=== PATIENT | male | born 2000 | race Caucasian/White ===

== ENCOUNTER 2020-07-16 09:37 | Emergency (ER) | payer MEDICAID, SELFPAY ==
[2020-07-16 09:56] VITALS: BP 170/87; PULSE 92; RESP 16; TEMP 37; O2SAT 97; BMI 40.1
--- NOTE | 2020-07-16 10:41 | ED.GENADULT ---
HPI - General Adult General Chief complaint: General Medical Stated complaint: sore throat Time Seen by Provider: 07/16/20 10:37 Source: patient Mode of arrival: ambulatory History of Present Illness HPI narrative: 19-year-old male with a past medical history of seizures presenting to the ED complaining of sore throat x3 days. Reports worse on left side with pain/difficulty swallowing. Denies fever, chills, difficulty breathing, cough, chest pain, ear pain Onset (ago): day(s) Related Data Previous Rx's Medication Instructions Recorded acetaminophen [Tylenol Extra 500 mg PO Q6H PRN #20 tab 07/16/20 Strength] amoxicillin-pot clavulanate 1 tab PO Q12H 7 Days #14 tab 07/16/20 [Augmentin] ibuprofen 600 mg PO Q8H PRN #20 tab 07/16/20 Allergies Allergy/AdvReac Type Severity Reaction Status Date / Time No Known Allergies Allergy Verified 07/16/20 09:59 [No Known Allergies*] Review of Systems Review of Systems: Constitutional: No Fever, No Chills ENT/Mouth: No Ear Pain, No Nasal Congestion, No Sinus Pain, No Hoarseness, + sore throat, No Rhinorrhea, + Swallowing Difficulty Cardiovascular: No Chest Pain, No SOB Respiratory: No Cough, No Sputum, No Wheezing Gastrointestinal: No Nausea, No Vomiting, No Diarrhea, No Abdominal pain Musculoskeletal: No joint pain, No Myalgias Skin: No Skin Lesions, No rash Yes all other systems are reviewed and are negative PMFSH Past Medical History Attestation statement: The following information was validated with the patient. Medical History (Updated 07/16/20 @ 10:48 by LASHAE Coates) Seizure Social History Social History Advance Directives: No Advance Directives Information Provided: No Physical Exam Vital Signs: Vital Signs: Last Vital Signs Temp 98.6 F 07/16/20 09:56 Pulse 92 07/16/20 09:56 Resp 16 07/16/20 09:56 BP 170/87 H 07/16/20 09:56 Pulse Ox 97 07/16/20 09:56 Body Mass Index 40.1 Const: General: cooperative, healthy appearing and no acute distress Orientation/consciousness: patient oriented x3 Limitations: no limitations HENMT: Other: No evidence of COUNTY COURT JUDGE Head: Yes normal to inspection Ears: hearing grossly normal bilaterally and TM's normal bilaterally General nose exam: Normal external nose present Face and sinus: Yes normal facial exam Mouth: Normal oral and palatal mucosa present Throat: Yes uvula midline, Yes abnormal tonsil (Bilateral tonsillar erythema, swelling, and exudates > left), No peritonsillar mass, No uvula laterally displaced and No uvular edema Eyes: General: appearance normal, both eyes and all related structures EOM: EOMs intact bilaterally Neck: Other: + submandibular lymphadenopathy Neck: Yes normal visual inspection and Yes no meningeal signs Resp: Effort & Inspection: normal respiratory effort, no grunting, not labored and no stridor Cardio: Rate: regular rate Skin: Rashes: no rashes Wounds: no wounds Neuro: General: patient oriented x3 and no meningeal signs Gait exam (Neuro): Normal gait present Extrem: General: Yes normal to inspection Medical Decision Making MDM Narrative Medical decision making narrative: On exam VSS, NAD/well-appearing, exam consistent with strep pharyngitis, no evidence of [employer] COURT JUDGE, no respiratory distress, talking in complete sentences. Plan: PO Decadron, 1st dose of Augmentin, rapid strep, strict return precautions discussed, patient verbalized understanding Discharge Plan Discharge Clinical Impression: Strep pharyngitis Patient Disposition: Home, Self-Care Instructions: Strep Throat (ED) Additional Instructions: You likely have strep pharyngitis. Augmentin is an antibiotic, take as prescribed Your given a doses steroid today in the ED which will help with swelling, this takes 24 hours to take full effect Take Tylenol/ Motrin for pain and swelling He should be re-evaluated in a couple days If her symptoms persist or worsen, swelling persists, you are unable to swallow/have difficulty swelling, or any difficulty breathing return to the ED immediately Prescriptions: New acetaminophen [Tylenol Extra Strength] 500 mg tablet 500 mg PO Q6H PRN (Reason: pain or fever) Qty: 20 RF: 0 amoxicillin-pot clavulanate [Augmentin] 875-125 mg tablet 1 tab PO Q12H 7 Days Qty: 14 RF: 0 ibuprofen 600 mg tablet 600 mg PO Q8H PRN (Reason: fever or pain) Qty: 20 RF: 0 Referrals: [facility] [Primary Care Provider] - 2 days
[2020-07-16] MEDS: dexAMETHasone 2 MG TABLET 10 MG PO (10:58)
[2020-07-16] MEDS: Amoxicillin/Potassium Clav 875 MG TABLET PO (10:58)
[2020-07-16 11:16] LABS: Strep A Nucleic Acid Negative (Negative)
== END 2020-07-16 11:11 | disposition home or self-care (01) ==
PROVIDERS: Physician Assistant; Emergency Provider Emergency Medicine Emergency Medical Services
DX: J02.0 Streptococcal pharyngitis (principal); Z79.899 Other long term (current) drug therapy
CPT/HCPCS: 36415; 87651; 99283; J8540

== ENCOUNTER 2020-07-17 16:29 | Emergency (ER) | payer MEDICAID, SELFPAY ==
--- NOTE | ~2020-07-17 | CT_ITS ---
EXAMINATION: CT SOFT TISSUE NECK WITH CONTRAST CLINICAL INFORMATION: Asymmetric throat swelling, evaluate for abscess. COMPARISON: CT scan of the cervical spine 04/08/2019. TECHNIQUE: Following the intravenous administration of 60 mL of Omnipaque 350 intravenous contrast, helical imaging was performed in the axial plane with generation of coronal and sagittal reformatted images. This CT examination was performed using dose optimization techniques as appropriate, variously including the following: *Automated exposure control *Adjustment of mA and/or kV according to patient size (this includes techniques or standardized protocols for targeted exams where dose is matched to indication/reason for exam; i.e. extremities or head) *Use of iterative reconstruction technique DLP: 966 mGy-cm FINDINGS: There is fullness in the left floor of mouth, which has some central low attenuation. No discrete fluid collection is demonstrated at present. There is moderate prominence of the lingual tonsils bilaterally, more extensive on the left. There is mass effect on the oropharyngeal airway which is narrowed on the left. There are moderate to prominent lymph nodes in the neck bilaterally, measuring up to 2.5 cm in the left level IIA region, and up to 1.9 cm on the right. The parotid glands are homogeneous in attenuation. The submandibular glands are normal. The laryngeal structures are normal. The parapharyngeal fat is preserved. The cervical vascular structures opacify normally. No extra mucosal soft tissue mass or fluid collection is seen. No retropharyngeal fluid collection is seen. The thyroid gland is normal. The superior mediastinum is unremarkable. The lung apices are clear. The mastoid air cells are well-aerated. There is mild mucoperiosteal thickening in the left maxillary sinus inferiorly. The temporomandibular joints are normal. There are periapical and periodontal lucencies around the roots of a markedly carious left maxillary 1st molar tooth. Similar periapical changes are noted around the roots of the right maxillary 2nd molar tooth. There are also periapical lucencies and periodontal disease around the buccal aspect of the root filled left mandibular 1st molar tooth. The left maxillary 3rd molar tooth is unerupted. There are no acute osseous findings. There are no acute osseous findings. The visualized intracranial. The orbits are unremarkable. CT/CT soft tissue neck w con IMPRESSION: 1. There is fullness of the left floor of mouth with some central low-attenuation, which may be consistent with an evolving abscess. No discrete fluid collection is demonstrated at present. 2. Moderately prominent lymph nodes are noted bilaterally as described above. 3. Periapical and periodontal disease is noted around multiple teeth in the mandible and maxilla as described above.
[2020-07-17 16:40] VITALS: BP 147/104; PULSE 55; RESP 18; TEMP 36.4; O2SAT 99; BMI 40.1
--- NOTE | 2020-07-17 17:29 | ED_ITS ---
HPI - General Adult General Chief complaint: General Medical <LASHAE Marcano - Last Filed: 07/18/20 12:00> Stated complaint: ?Strep throat <LASHAE Marcano - Last Filed: 07/18/20 12:00> Time Seen by Provider: 07/17/20 17:02 <LASHAE Marcano Last Filed: 07/18/20 12:00> Source: patient <LASHAE Marcano Last Filed: 07/18/20 12:00> Mode of arrival: ambulatory <LASHAE Marcano Last Filed: 07/18/20 12:00> Limitations: no limitations <LASHAE Marcano Last Filed: 07/18/20 12:00> History of Present Illness HPI narrative: 19 y/o male with history of epilepsy presents to the ER with worsening sore throat for the last 4 days. He was seen here yesterday. He tested negative for Strep and was discharged with Augmentin, Motrin and Tylenol. He reports this morning his pain is significantly worse on the left side of his throat and neck. He was only able to eat a small amount this morning and it was very painful. He has been spitting out his own saliva because it hurts so bad to swallow. He denies difficulty breathing, fever, chills, vomiting. He he able to take his antibiotic and Motrin this morning. <LASHAE Marcano - Last Filed: 07/18/20 12:00> MD complaint: severe sore throat. <LASHAE Marcano Last Filed: 07/18/20 12:00> Onset (ago): day(s) (4) <LASHAE Marcano - Last Filed: 07/18/20 12:00> Location: mouth and neck <LASHAE Marcano Last Filed: 07/18/20 12:00> Radiation: distal <LASHAE Marcano Last Filed: 07/18/20 12:00> Severity: severe <LASHAE Marcano Last Filed: 07/18/20 12:00> Severity scale (1-10): 8 <LASHAE Marcano Last Filed: 07/18/20 12:00> Quality: stabbing and constant <LASHAE Marcano Last Filed: 07/18/20 12:00> Pain Consistency: constant <LASHAE Marcano Last Filed: 07/18/20 12:00> Relieving factors: none <LASHAE Marcano Last Filed: 07/18/20 12:00> Exacerbating factors: eating <LASHAE Marcano Last Filed: 07/18/20 12:00> Associated symptoms: headaches and loss of appetite <LASHAE Marcano Last Filed: 07/18/20 12:00> Treatments prior to arrival: NSAID <LASHAE Marcano Last Filed: 07/18/20 12:00> Related Data Home medications: Previous Rx's Medication Instructions Recorded acetaminophen [Tylenol Extra 500 mg PO Q6H PRN #20 tab 07/16/20 Strength] amoxicillin-pot clavulanate 1 tab PO Q12H 7 Days #14 tab 07/16/20 [Augmentin] ibuprofen 600 mg PO Q8H PRN #20 tab 07/16/20 <LASHAE Marcano Last Filed: 07/18/20 12:00> Allergies/adverse reactions: Allergies Allergy/AdvReac Type Severity Reaction Status Date / Time No Known Allergies Allergy Verified 07/16/20 09:59 [No Known Allergies*] <LASHAE Marcano Last Filed: 07/18/20 12:00> Review of Systems Review of Systems: Constitutional: No Fever, No Chills ENT/Mouth: + sore throat, No Rhinorrhea, + Swallowing Difficulty Eyes: No Eye Pain, No Swelling, No Redness Cardiovascular: No Chest Pain, No SOB Respiratory: No Cough, No Sputum, No Wheezing, No dyspnea Gastrointestinal: No Nausea, No Vomiting, No Diarrhea, No abdominal Pain Musculoskeletal: No joint pain, No Myalgias Skin: No Skin Lesions, No rash Neuro: No Weakness, No Numbness, No Dizziness, + Headache Heme/Lymph: No Bruising, + Lymphadenopathy <LASHAE Marcano Last Filed: 07/18/20 12:00> PMFSH Past Medical History Attestation statement: The following information was validated with the patient. <LASHAE Marcano Last Filed: 07/18/20 12:00> Medical History: Medical History Seizure <LASHAE Marcano - Last Filed: 07/18/20 12:00> Social History Social History: Social History Alcohol intake: never Smoking Status: Never smoker Use of substances other than those prescribed or required for medical reasons: No Advance Directives: No Advance Directives Information Provided: No <LASHAE Marcano - Last Filed: 07/18/20 12:00> Physical Exam Vital Signs: Vital Signs: Last Vital Signs Temp 97.8 F 07/17/20 22:56 Pulse 70 07/17/20 22:56 Resp 18 07/17/20 22:56 BP 153/93 H 07/17/20 22:56 Pulse Ox 96 07/17/20 22:56 Body Mass Index 40.1 Appearance: Alert. Oriented X3. No acute distress. Eyes: Pupils equal, round and reactive to light. ENT: Pharynx with significant erythema and edema of the left tonsil. voice is normal and he is handling his secretions appropriately. Neck: Normal inspection. Neck supple. CVS: Normal heart rate and rhythm. Pulses normal. Respiratory: No respiratory distress. Breath sounds normal. Abdomen: Soft and nontender. +BS x4 Skin: Skin warm and dry. Normal skin color. Normal skin turgor. No rashes. Extremities: No lower extremity edema. Neuro: Oriented X 3. No motor deficit. No sensory deficit. <LASHAE Marcano - Last Filed: 07/18/20 12:00> Vital Signs: Last Vital Signs Temp 97.8 F 07/17/20 22:56 Pulse 70 07/17/20 22:56 Resp 18 07/17/20 22:56 BP 153/93 H 07/17/20 22:56 Pulse Ox 96 07/17/20 22:56 Body Mass Index 40.1 <Gala Wolf NP - Last Filed: 07/18/20 01:20> Course Course Course Narrative: 19 y/o male presenting with severe sore throat. Exam is concerning for peritonsillar abscess with unilateral swelling in the left side. Will need to get labs and CT scan to differentiate peritonsillar vs retropharyngeal abscess. Patient reports his voice sounds muffled to him and he is having difficulty swallowing his own saliva. IV clindamycin, IV decadron and Toradol ordered. Dispo pending results and improvement. <LASHAE Marcano - Last Filed: 07/18/20 12:00> Sign-out from [place] at 6:00 p.m. 7:[address] scan still pending. 10:[address] scan shows some fullness in the left floor of mouth, which has some central low attenuation. No discrete fluid collection is demonstrated at present. There is moderate prominence of the lingual tonsils bilaterally, more extensive on the left. There is mass effect on the oropharyngeal airway which is narrowed on the left. This was discussed with Dr. Montenegro, plan is to call out to [facility] for ENT. 11: 18 p.m. called to [facility], discussion with ENT, [facility] is close to stable transfers at this time. Call out to [facility]. [id number] call out to [facility]. [address] Rubio at [facility]. Patient does understand reason for transfer to [facility]. Patient verbalized understanding of and agrees with plan. <Gala Wolf NP - Last Filed: 07/18/20 01:20> Medical Decision Making Differential Diagnosis Differential Diagnosis: Peritonsillar abscess, Porter's, strep pharyngitis <Gala Wolf NP - Last Filed: 07/18/20 01:20> Lab Data Lab results reviewed: Yes I reviewed the patient's lab results. <Gala Wolf NP - Last Filed: 07/18/20 01:20> Result diagrams: : 07/17/20 18:01 07/17/20 18:01 <LASHAE Marcano - Last Filed: 07/18/20 12:00> Labs: Lab Results 07/17/20 07/17/20 07/17/20 Range/Units 18:01 18:01 18:01 WBC 9.5 (4.8-10.8) X10*3/uL RBC 5.02 (4.60-5.80) X10*6/uL Hgb 15.1 (14.0-18.0) g/dl Hct 46.0 (42-52) % MCV 91.6 (80-98) fL MCH 30.1 (27.0-33.0) pg MCHC 32.8 (31.0-36.0) g/dl RDW 11.9 (11.0-16.0) % Plt Count 243 (160-400) X10*3/uL MPV 11.5 (9.4-12.4) fL Immature Gran % (Auto) 0.5 H (0.0-0.4) % Neut % (Auto) 64.8 (45-73) % Lymph % (Auto) 21.8 (20-40) % Bill[place] % (Auto) 12.1 H (2-11) % Eos % (Auto) 0.6 (0-4) % Baso % (Auto) 0.2 (0-2) % Lymph # (Auto) 2.1 (1.2-4.9) X10*3/uL Bill[place] # (Auto) 1.2 (0.1-1.2) X10*3/uL Eos # (Auto) 0.1 (0.0-0.4) X10*3/uL Baso # (Auto) 0.0 (0.0-0.2) X10*3/uL Abs Immat Gran (auto) 0.05 H (0.00-0.03) X10*3/uL Absolute Neuts (auto) 6.2 (2.0-8.3) X10*3/uL Absolute Nucleated RBC 0.000 (0.0-0.012) X10*3/uL Nucleated RBC % (auto) 0.0 (0.0-0.2) /100WBC Sodium 143 (135-145) mmol/L Potassium 4.0 (3.3-5.1) mmol/L Chloride 108 (96-108) mmol/L Carbon Dioxide 24 (22-29) mmol/L Anion Gap 15 (12-20) BUN 18 H (9-16) mg/dL Creatinine 1.10 (0.5-1.4) mg/dL Estim Creat Clear Calc 142.1 Estimated GFR > 60 Random Glucose 95 (60-115) mg/dL Lactic Acid 0.8 (0.5-2.0) mmol/L Calcium 9.9 (8.4-10.2) mg/dL COVID-19 (CASPER) (Negative) COVID-19 Clin Com 07/17/20 Range/Units 23:03 WBC (4.8-10.8) X10*3/uL RBC (4.60-5.80) X10*6/uL Hgb (14.0-18.0) g/dl Hct (42-52) % MCV (80-98) fL MCH (27.0-33.0) pg MCHC (31.0-36.0) g/dl RDW (11.0-16.0) % Plt Count (160-400) X10*3/uL MPV (9.4-12.4) fL Immature Gran % (Auto) (0.0-0.4) % Neut % (Auto) (45-73) % Lymph % (Auto) (20-40) % Billings % (Auto) (2-11) % Eos % (Auto) (0-4) % Baso % (Auto) (0-2) % Lymph # (Auto) (1.2-4.9) X10*3/uL Billings # (Auto) (0.1-1.2) X10*3/uL Eos # (Auto) (0.0-0.4) X10*3/uL Baso # (Auto) (0.0-0.2) X10*3/uL Abs Immat Gran (auto) (0.00-0.03) X10*3/uL Absolute Neuts (auto) (2.0-8.3) X10*3/uL Absolute Nucleated RBC (0.0-0.012) X10*3/uL Nucleated RBC % (auto) (0.0-0.2) /100WBC Sodium (135-145) mmol/L Potassium (3.3-5.1) mmol/L Chloride (96-108) mmol/L Carbon Dioxide (22-29) mmol/L Anion Gap (12-20) BUN (9-16) mg/dL Creatinine (0.5-1.4) mg/dL Estim Creat Clear Calc Estimated GFR Random Glucose (60-115) mg/dL Lactic Acid (0.5-2.0) mmol/L Calcium (8.4-10.2) mg/dL COVID-19 (CASPER) Negative (Negative) COVID-19 Clin Com See Note <LASHAE Marcano - Last Filed: 07/18/20 12:00> Lab Results 07/17/20 07/17/20 07/17/20 Range/Units 18:01 18:01 18:01 WBC 9.5 (4.8-10.8) X10*3/uL RBC 5.02 (4.60-5.80) X10*6/uL Hgb 15.1 (14.0-18.0) g/dl Hct 46.0 (42-52) % MCV 91.6 (80-98) fL MCH 30.1 (27.0-33.0) pg MCHC 32.8 (31.0-36.0) g/dl RDW 11.9 (11.0-16.0) % Plt Count 243 (160-400) X10*3/uL MPV 11.5 (9.4-12.4) fL Immature Gran % (Auto) 0.5 H (0.0-0.4) % Neut % (Auto) 64.8 (45-73) % Lymph % (Auto) 21.8 (20-40) % Bill[place] % (Auto) 12.1 H (2-11) % Eos % (Auto) 0.6 (0-4) % Baso % (Auto) 0.2 (0-2) % Lymph # (Auto) 2.1 (1.2-4.9) X10*3/uL Bill[place] # (Auto) 1.2 (0.1-1.2) X10*3/uL Eos # (Auto) 0.1 (0.0-0.4) X10*3/uL Baso # (Auto) 0.0 (0.0-0.2) X10*3/uL Abs Immat Gran (auto) 0.05 H (0.00-0.03) X10*3/uL Absolute Neuts (auto) 6.2 (2.0-8.3) X10*3/uL Absolute Nucleated RBC 0.000 (0.0-0.012) X10*3/uL Nucleated RBC % (auto) 0.0 (0.0-0.2) /100WBC Sodium 143 (135-145) mmol/L Potassium 4.0 (3.3-5.1) mmol/L Chloride 108 (96-108) mmol/L Carbon Dioxide 24 (22-29) mmol/L Anion Gap 15 (12-20) BUN 18 H (9-16) mg/dL Creatinine 1.10 (0.5-1.4) mg/dL Estim Creat Clear Calc 142.1 Estimated GFR > 60 Random Glucose 95 (60-115) mg/dL Lactic Acid 0.8 (0.5-2.0) mmol/L Calcium 9.9 (8.4-10.2) mg/dL COVID-19 (CASPER) (Negative) COVID-19 Clin Com 07/17/20 Range/Units 23:03 WBC (4.8-10.8) X10*3/uL RBC (4.60-5.80) X10*6/uL Hgb (14.0-18.0) g/dl Hct (42-52) % MCV (80-98) fL MCH (27.0-33.0) pg MCHC (31.0-36.0) g/dl RDW (11.0-16.0) % Plt Count (160-400) X10*3/uL MPV (9.4-12.4) fL Immature Gran % (Auto) (0.0-0.4) % Neut % (Auto) (45-73) % Lymph % (Auto) (20-40) % Billings % (Auto) (2-11) % Eos % (Auto) (0-4) % Baso % (Auto) (0-2) % Lymph # (Auto) (1.2-4.9) X10*3/uL Billings # (Auto) (0.1-1.2) X10*3/uL Eos # (Auto) (0.0-0.4) X10*3/uL Baso # (Auto) (0.0-0.2) X10*3/uL Abs Immat Gran (auto) (0.00-0.03) X10*3/uL Absolute Neuts (auto) (2.0-8.3) X10*3/uL Absolute Nucleated RBC (0.0-0.012) X10*3/uL Nucleated RBC % (auto) (0.0-0.2) /100WBC Sodium (135-145) mmol/L Potassium (3.3-5.1) mmol/L Chloride (96-108) mmol/L Carbon Dioxide (22-29) mmol/L Anion Gap (12-20) BUN (9-16) mg/dL Creatinine (0.5-1.4) mg/dL Estim Creat Clear Calc Estimated GFR Random Glucose (60-115) mg/dL Lactic Acid (0.5-2.0) mmol/L Calcium (8.4-10.2) mg/dL COVID-19 (CASPER) Negative (Negative) COVID-19 Clin Com See Note <Gala Wolf NP - Last Filed: 07/18/20 01:20> Imaging Data CT scan neck soft tissues: Attestation: I personally reviewed and interpreted this imaging study as follows: <Gala Wolf NP - Last Filed: 07/18/20 01:20> Radiologist's impression: EXAMINATION: CT SOFT TISSUE NECK WITH CONTRAST CLINICAL INFORMATION: Asymmetric throat swelling, evaluate for abscess. COMPARISON: CT scan of the cervical spine 04/08/2019. TECHNIQUE: Following the intravenous administration of 60 mL of Omnipaque 350 intravenous contrast, helical imaging was performed in the axial plane with generation of coronal and sagittal reformatted images. This CT examination was performed using dose optimization techniques as appropriate, variously including the following: *Automated exposure control *Adjustment of mA and/or kV according to patient size (this includes techniques or standardized protocols for targeted exams where dose is matched to indication/reason for exam; i.e. extremities or head) *Use of iterative reconstruction technique DLP: 966 mGy-cm FINDINGS: There is fullness in the left floor of mouth, which has some central low attenuation. No discrete fluid collection is demonstrated at present. There is moderate prominence of the lingual tonsils bilaterally, more extensive on the left. There is mass effect on the oropharyngeal airway which is narrowed on the left. There are moderate to prominent lymph nodes in the neck bilaterally, measuring up to 2.5 cm in the left level IIA region, and up to 1.9 cm on the right. The parotid glands are homogeneous in attenuation. The submandibular glands are normal. The laryngeal structures are normal. The parapharyngeal fat is preserved. The cervical vascular structures opacify normally. No extra mucosal soft tissue mass or fluid collection is seen. No retropharyngeal fluid collection is seen. The thyroid gland is normal. The superior mediastinum is unremarkable. The lung apices are clear. The mastoid air cells are well-aerated. There is mild mucoperiosteal thickening in the left maxillary sinus inferiorly. The temporomandibular joints are normal. There are periapical and periodontal lucencies around the roots of a markedly carious left maxillary 1st molar tooth. Similar periapical changes are noted around the roots of the right maxillary 2nd molar tooth. There are also periapical lucencies and periodontal disease around the buccal aspect of the root filled left mandibular 1st molar tooth. The left maxillary 3rd molar tooth is unerupted. There are no acute osseous findings. There are no acute osseous findings. The visualized intracranial. The orbits are unremarkable. CT/CT soft tissue neck w con IMPRESSION: 1. There is fullness of the left floor of mouth with some central low-attenuation, which may be consistent with an evolving abscess. No discrete fluid collection is demonstrated at present. 2. Moderately prominent lymph nodes are noted bilaterally as described above. 3. Periapical and periodontal disease is noted around multiple teeth in the mandible and maxilla as described above. <Gala Wolf NP - Last Filed: 07/18/20 01:20> Critical Care Time Critical Care Time Critical Care Time: Yes <Gala Wolf NP - Last Filed: 07/18/20 01:20> Total Critical Care Time: 60 <Gala Wolf NP - Last Filed: 07/18/20 01:20> Attestation: I have personally provided critical care time exclusive of time spent on separately billable procedures. Time includes review of laboratory data, radiology results, discussion with consultants, and monitoring for potential decompensation. Interventions were performed as documented. <Gala Wolf NP - Last Filed: 07/18/20 01:20> Discharge Plan Discharge Clinical Impression: Partial obstruction of airway Acute tonsillitis Qualifiers: Pharyngitis/tonsillitis etiology: streptococcus Streptococcal tonsillitis recurrence: non-recurrent Qualified Code(s): J03.00 - Acute streptococcal tonsillitis, unspecified <LASHAE Marcano - Last Filed: 07/18/20 12:00> Patient Disposition: General Acute Hospital <LASHAE Marcano - Last Filed: 07/18/20 12:00> Transfer Details: [facility], accepting physician Dr. Rubio <LASHAE Marcano - Last Filed: 07/18/20 12:00> [facility], accepting physician Dr. Rubio <Gala Wolf NP - Last Filed: 07/18/20 01:20> Prescriptions: No Action acetaminophen [Tylenol Extra Strength] 500 mg tablet 500 mg PO Q6H PRN (Reason: pain or fever) Qty: 20 RF: 0 amoxicillin-pot clavulanate [Augmentin] 875-125 mg tablet 1 tab PO Q12H 7 Days Qty: 14 RF: 0 ibuprofen 600 mg tablet 600 mg PO Q8H PRN (Reason: fever or pain) Qty: 20 RF: 0 <LASHAE Marcano - Last Filed: 07/18/20 12:00>
[2020-07-17] MEDS: Clindamycin Phosphate/D5W 600 MG/50 ML PIGGYBACK 100 MG IV (18:02)
[2020-07-17] MEDS: Ketorolac Tromethamine 30 MG/ML VIAL IVPUSH (18:02)
[2020-07-17 18:13] LABS: MANUAL DIFF FLAG NO
[2020-07-17 18:17] LABS: Basophils Percent Auto 0.2 % (0-2); Eosinophils Absolute Auto 0.1 X10*3/uL (0.0-0.4); Eosinophils Percent Auto 0.6 % (0-4); Hemoglobin 15.1 g/dl (14.0-18.0); Imm Gran Abs Auto 0.05 X10*3/uL (0.00-0.03); Imm Gran Pct Auto 0.5 % (0.0-0.4); Lymphocytes Absolute Auto 2.1 X10*3/uL (1.2-4.9); Lymphocytes Percent Auto 21.8 % (20-40); Mean Corpuscular HGB Conc 32.8 g/dl (31.0-36.0); Mean Corpuscular Hemoglobin 30.1 pg (27.0-33.0); Mean Corpuscular Volume 91.6 fL (80-98); Mean Platelet Volume 11.5 fL (9.4-12.4); Monocytes Absolute Auto 1.2 X10*3/uL (0.1-1.2); Monocytes Percent Auto 12.1 % (2-11); Neutrophils Absolute Auto 6.2 X10*3/uL (2.0-8.3); Neutrophils Percent Auto 64.8 % (45-73); Platelet Count 243 X10*3/uL (160-400); Red Blood Count 5.02 X10*6/uL (4.60-5.80); Red Cell Distribution Width 11.9 % (11.0-16.0); White Blood Count 9.5 X10*3/uL (4.8-10.8)
[2020-07-17 18:36] LABS: Lactic Acid 0.8 mmol/L (0.5-2.0)
[2020-07-17 18:38] LABS: Anion Gap 15 (12-20); Blood Urea Nitrogen 18 mg/dL (9-16); Calcium 9.9 mg/dL (8.4-10.2); Carbon Dioxide 24 mmol/L (22-29); Chloride 108 mmol/L (96-108); Creatinine Clr Calc Pharmacy 142.1; Estimated Glomerular Filt Rate > 60; Glucose Random 95 mg/dL (60-115); Sodium 143 mmol/L (135-145)
[2020-07-17] MEDS: iohexoL 350 MG/ML 100 ML INFUS..BTL IV (19:29)
[2020-07-17 20:00] VITALS: BP 144/88; PULSE 76; RESP 18; TEMP 36.8; O2SAT 96
[2020-07-17 22:56] VITALS: BP 153/93; PULSE 70; RESP 18; TEMP 36.6; O2SAT 96
[2020-07-17 23:36] LABS: COVID-19 Test Negative (Negative); IDNOW Serial# 9DD0AD1C
== END 2020-07-18 00:53 | disposition short-term general hospital (02) ==
PROVIDERS: Nurse Practitioner Family; Physician Assistant; Emergency Provider Emergency Medicine
DX: J98.8 Other specified respiratory disorders (principal); J03.00 Acute streptococcal tonsillitis, unspecified; Z20.822 Contact with and (suspected) exposure to COVID-19
CPT/HCPCS: 36415; 70491; 80048; 83605; 85025; 87040; 87635; 96365; 96375; 99284; 99291; J1100; J1885; Q9967

== ENCOUNTER 2020-11-07 11:00 | Emergency (ER) | payer OTHER, MEDICAID, SELFPAY ==
[2020-11-07 11:02] VITALS: BP 155/113; PULSE 75; RESP 16; TEMP 35.9; O2SAT 96; BMI 40.1
--- NOTE | 2020-11-07 11:53 | ED.WOUNDLAC ---
HPI - Wound/Laceration General Chief Complaint: Wound/Laceration Stated Complaint: ARM LAC AT WORK Time Seen by Provider: 11/07/20 11:48 Source: patient Mode of arrival: ambulatory Limitations: no limitations History of Present Illness HPI narrative: 20-year-old male presents for a left arm laceration that he sustained at work. 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 Bleeding is controlled. Not up-to-date on his tetanus. Onset (ago): hour(s) (1) Extremity Location: left: arm Place: work Patient tetanus UTD: No Context: accidental Associated symptoms: none Treatments prior to arrival: bandage Related Data Previous Rx's Medication Instructions Recorded acetaminophen 500 mg tablet 500 mg PO Q6H PRN #20 tab 07/16/20 (Tylenol Extra Strength) amoxicillin 875 mg-potassium 1 tab PO Q12H 7 Days #14 tab 07/16/20 clavulanate 125 mg tablet (Augmentin) ibuprofen 600 mg tablet 600 mg PO Q8H PRN #20 tab 07/16/20 Allergies Allergy/AdvReac Type Severity Reaction Status Date / Time No Known Allergies Allergy Verified 07/16/20 09:59 [No Known Allergies*] Review of Systems Constitutional: Constitutional: Denies chills and Denies fever(s) Eyes: Eyes: Denies blurry vision and Denies diplopia ENT: Denies otalgia and Denies sore throat Cardiovascular: Cardiovascular: Denies chest pain and Denies dyspnea Respiratory: Respiratory: Denies chest congestion, Denies cough and Denies dyspnea Gastrointestinal: Gastrointestinal: Denies nausea and Denies vomiting Musculoskeletal: Musculoskeletal: Denies arthralgias and Denies joint swelling Integumentary/Breasts: Comments: Laceration to left arm [facility] Past Medical History Medical History Seizure Social History Social History Alcohol intake: never Advance Directives: Yes Advance Directives Information Provided: No Advance Directives on File: No Physical Exam Vital Signs: Vital Signs: Last Vital Signs Temp 96.6 F L 11/07/20 11:02 Pulse 75 11/07/20 11:02 Resp 16 11/07/20 11:02 BP 155/113 H 11/07/20 11:02 Pulse Ox 96 11/07/20 11:02 Body Mass Index 40.1 Const: General: healthy appearing, no acute distress, well developed, alert and awake Nutritional Appearance: obese centrally obese Orientation/consciousness: patient oriented x3 Limitations: no limitations HENMT: Head: Yes normal to inspection, Yes normocephalic and Yes atraumatic Resp: Effort & Inspection: normal respiratory effort and able to speak in complete sentences Auscultation: clear to auscultation bilaterally, no crackles, no rales, no rhonchi and no wheezes Cardio: Rate: regular rate Rhythm: regular rhythm Heart sounds: S1 normal heart sound present and S2 normal heart sound present Skin: Trauma: laceration left anterior arm linear Full body images: 1. 1 cm not full thickness laceration Neuro: General: patient oriented x3 Extrem: Left upper extremity: full ROM, normal capillary refill and shoulder/upper arm (1 cm partial thickness laceration with abrasion) Details: axillary nerve sensory function normal, normal ROM, abrasion and laceration upper arm distal anterior ; Negative for no tenderness, no swelling, no ecchymosis, no crepitus, no foreign bodies, no penetrating wound and no unsual warmth; No no cyanosis, no edema and joint enlargement noted Course Course Course Narrative: Partial-thickness laceration near patient's elbow on distal left forearm. Two sutures placed, return precautions given, follow-up suture removal instructions given, wound care instructions given Procedures Laceration Laceration 1: Site: upper extremity Side (If applicable): left Size (cm): 1 Description: linear Depth: simple, single layer Local Anesthetic: lidocaine 1% Amount of anesthesia used (mL): 4 Pre-repair: wound explored, irrigated extensively and deep structures intact Skin layer closed with: vicryl Size (cm): 4-0 Number of sutures: 2 Technique: simple, interrupted Discharge Plan Discharge Clinical Impression: Laceration Patient Disposition: Home, Self-Care Instructions: Laceration (ED) Additional Instructions: Please leave the sutures in until next Tuesday or , Oct 15 and 16. Return to the emergency room to have 2 sutures removed. You can also go to your primary care provider, or an urgent care to get the sutures removed. Tomorrow at this time, please take the bandage off, wash with soap and water, pat dry, apply a thin layer of bacitracin, and place a nonstick dressing. Do that for the 4 days. If you have redness, swelling, warmth, please return to be seen, as these are signs of infection. Prescriptions: No Action acetaminophen [Tylenol Extra Strength] 500 mg tablet 500 mg PO Q6H PRN (Reason: pain or fever) Qty: 20 RF: 0 amoxicillin-pot clavulanate [Augmentin] 875-125 mg tablet 1 tab PO Q12H 7 Days Qty: 14 RF: 0 ibuprofen 600 mg tablet 600 mg PO Q8H PRN (Reason: fever or pain) Qty: 20 RF: 0
[2020-11-07] MEDS: Lidocaine HCl 1 % 20 ML VIAL 5 ML INFILTRATI (11:59)
[2020-11-07] MEDS: Diphth,Pertus(ACell),Tet Adult 0.5 ML SYRINGE IM (11:59)
== END 2020-11-07 12:57 | disposition home or self-care (01) ==
PROVIDERS: Emergency Provider Emergency Medicine
DX: S51.812A Laceration without foreign body of left forearm, initial encounter (principal); M79.632 Pain in left forearm; W29.8XXA Contact with other powered hand tools and household machinery, initial encounter; Y93.9 Activity, unspecified; Y92.219 Unspecified school as the place of occurrence of the external cause; Y99.0 Civilian activity done for income or pay; Z79.899 Other long term (current) drug therapy
CPT/HCPCS: 12001; 90471; 90715; 99283; 99284

== ENCOUNTER 2021-05-12 11:01 | Outpatient (REF) | payer MEDICAID, SELFPAY ==
[2021-05-12 12:57] LABS: Alanine Aminotransferase 81 U/L (0-40); Albumin Level 4.3 g/dL (3.5-5.0); Alkaline Phosphatase 81 U/L (39-117); Aspartate Amino Transferase 99 U/L (5-37); Bilirubin Direct 0.2 mg/dL (0.0-0.5); Bilirubin Total 0.5 mg/dL (0.0-1.0); Total Protein 7.7 g/dL (6.5-8.0)
[2021-05-12 12:58] LABS: Valproate 25.5 mcg/mL (50.0-100.0)
== END 2021-05-12 11:02 | disposition home or self-care (01) ==
LOC: HO.LAB 11:01
PROVIDERS: Visit Provider Psychiatry & Neurology Neurology
DX: G40.909 Epilepsy, unspecified, not intractable, without status epilepticus (principal); Z79.899 Other long term (current) drug therapy
CPT/HCPCS: 36415; 80076; 80164

== ENCOUNTER 2021-11-11 18:34 | Emergency (ER) | payer MEDICAID, SELFPAY ==
[2021-11-11 18:43] VITALS: BP 162/108; PULSE 90; RESP 17; TEMP 36.7; O2SAT 99; BMI 30.1
[2021-11-11 19:13] VITALS: BP 151/98; PULSE 89; RESP 15; TEMP 36.8; O2SAT 99; BMI 40.1
== END 2021-11-11 23:01 | disposition left against medical advice (07) ==
PROVIDERS: Emergency Provider Emergency Medicine
DX: H92.03 Otalgia, bilateral (principal)
CPT/HCPCS: 99281

== ENCOUNTER 2023-03-15 16:33 | Emergency (ER) | payer MEDICAID, SELFPAY ==
--- NOTE | 2023-03-15 16:46 | ECG_ITS ---
Test Reason : AFIB Blood Pressure : / mmHG Vent. Rate : 125 BPM Atrial Rate : 000 BPM P-R Int : 000 ms QRS Dur : 090 ms QT Int : 274 ms P-R-T Axes : 000 037 -06 degrees QTc Int : 395 ms Atrial fibrillation with rapid ventricular response Abnormal ECG When compared with ECG of 30-JUL-2014 19:16, Rhythm change Referred By: Misha Buenrostro Electronically Signed By:BETTY DONALDSON
[2023-03-15 16:55] VITALS: BP 134/82; BP 160/108; PULSE 135; PULSE 170; RESP 18; TEMP 36.9; O2SAT 100; O2SAT 94; BMI 53.5
--- NOTE | 2023-03-15 16:58 | ED_ITS ---
HPI - Seizure General Chief Complaint: Seizure Stated Complaint: SEIZURE WITNESSED Time Seen by Provider: 03/15/23 16:34 Source: patient Mode of arrival: ambulatory Limitations: no limitations History of Present Illness HPI Narrative: Patient 22 years old with history of tonic-clonic seizures since age 14 on zonisamide and Depakote apparently missed 2 days of his medication was outside his apartment felt funny next thing he noticed he was in the ambulance family noticed patient having generalized tonic-clonic seizure lasting for about 5 minute and monitor showed atrial fibrillation with ventricular rate of 167 patient was started on Cardizem on arrival patient's heart rate is 125 AFib. Patient denied any head injury bit his tip of tongue Related Data Previous Rx's Medication Instructions Recorded acetaminophen 500 mg tablet 500 mg PO Q6H PRN pain or fever 07/16/20 (Tylenol Extra Strength) #20 tabs amoxicillin 875 mg-potassium 1 tab PO Q12H 7 days #14 tabs 07/16/20 clavulanate 125 mg tablet (Augmentin) ibuprofen 600 mg tablet 600 mg PO Q8H PRN fever or pain 07/16/20 #20 tabs aspirin 81 mg tablet,delayed 81 mg PO DAILY #90 tabs 03/15/23 release (Adult Aspirin Regimen) metoprolol tartrate 25 mg tablet 25 mg PO BID #180 tabs 03/15/23 Allergies Allergy/AdvReac Type Severity Reaction Status Date / Time No Known Allergies Allergy Verified 11/11/21 19:22 [No Known Allergies*] Review of Systems 2 Review of Systems: Yes all other systems are reviewed and are negative PMFSH Past Medical History Onset Date is defined in the Problem List Problems that require an onset date and time if occurred within 24 hrs of arrival to the ED Aortic Dissection and Rupture; Neurologic impairment; Cardiopulmonary Arrest; Endotracheal Intubation; Insertion or Replacement of Mechanical Circulatory Assist Device Medical History Seizure Social History Social History Alcohol intake: never Physical Exam 2 Vital Signs: Vital Signs: Last Vital Signs Temp 98.5 F 03/15/23 16:55 Pulse 89 03/15/23 20:05 Resp 12 03/15/23 20:05 BP 140/79 H 03/15/23 20:05 Pulse Ox 98 03/15/23 20:05 O2 Del Method Room Air 03/15/23 20:05 O2 Flow Rate 2 03/15/23 18:47 BMI result Body Mass Index 53.5 Appearance: Alert. Oriented X3. No acute distress. Eyes: PERRLA, No Nystagmus ENT: Pharynx normal. Oral Mucosa moist minor tongue bite of tip of the tongue Neck: Normal inspection. Neck supple. CVS: Tachycardic irregularly irregular no murmur rub or gallop. Pulses normal. Respiratory: No respiratory distress. Equal air entry bilateral, no wheezing/rales/rhonchi Abdomen: Soft and nontender. Bowel sounds are present, no mass palpable, no CVA tenderness Skin: Skin warm and dry. Normal skin color. Normal skin turgor. Extremities: No lower extremity edema. No calf tenderness Neuro: Oriented X 3. No motor deficit. No sensory deficit.No cerebellar signs , cranial nerves II-XII intact Medications Administered Discontinued Medications Generic Name Dose Route Start Last Admin Trade Name Freq PRN Reason Stop Dose Admin Aspirin 81 mg 03/15/23 18:18 03/15/23 18:46 Aspirin 81 Mg Tab.Chew PO 03/15/23 18:19 81 mg ONCE ONE Administration Diltiazem HCl 20 mg 03/15/23 17:04 03/15/23 17:09 Diltiazem Hcl 50 Mg/10 Ml Vial IVPUSH 03/15/23 17:05 20 mg STAT STA Administration Divalproex Sodium 1,500 mg 03/15/23 16:57 03/15/23 17:09 Divalproex Sodium 500 Mg Tablet.Dr PO 03/15/23 16:58 1,500 mg ONCE ONE Administration Lorazepam 1 mg 03/15/23 16:56 03/15/23 17:09 Lorazepam 2 Mg/Ml Vial IVPUSH 03/15/23 16:57 1 mg ONCE ONE Administration Metoprolol Tartrate 5 mg 03/15/23 18:18 03/15/23 18:46 Metoprolol Tartrate 5 Mg/5 Ml Vial IVPUSH 03/15/23 18:19 5 mg ONCE ONE Administration Metoprolol Tartrate 25 mg 03/15/23 19:22 03/15/23 20:04 Metoprolol Tartrate 25 Mg Tablet PO 03/15/23 19:23 25 mg ONCE ONE Administration Protocol Zonisamide 300 mg 03/15/23 16:58 03/15/23 17:55 Zonisamide 100 Mg Capsule PO 03/15/23 16:59 300 mg ONCE ONE Administration Medical Decision Making Medical Decision Making [facility] Narrative: Patient with breakthrough seizure secondary to noncompliance with the medication also has lone fibrillation responded to Cardizem and Lopressor chads score of 0 advised to follow with principal java software engineer for further evaluation will start patient on Lopressor Differential Diagnosis Differential Diagnoses: The differential diagnosis associated with the presentation includes Seizure disorder atrial fibrillation atrial flutter Admission/Observation Consideration of admission/observation: Escalation of care including admission/observation considered Lab Data [facility] Lab Attestation statement: I reviewed the patient's lab results. 03/15/23 17:04 03/15/23 17:04 Labs: Lab Results 03/15/23 Range/Units 17:04 WBC 6.5 (4.8-10.8) X10*3/uL RBC 5.25 (4.60-5.80) X10*6/uL Hgb 14.8 (14.0-18.0) g/dl Hct 45.8 (42.0-52.0) % MCV 87.2 (80.0-98.0) fL MCH 28.2 (27.0-33.0) pg MCHC 32.3 (31.0-36.0) g/dl RDW 12.3 (11.0-16.0) % Plt Count 265 (160-400) X10*3/uL MPV 11.2 (9.4-12.4) fL Immature Gran % (Auto) 1.5 H (0.0-0.4) % Neut % (Auto) 52.8 (45-73) % Lymph % (Auto) 32.0 (20-40) % Emmet % (Auto) 11.7 H (2-11) % Eos % (Auto) 1.7 (0-4) % Baso % (Auto) 0.3 (0-2) % Lymph # (Auto) 2.1 (1.2-4.9) X10*3/uL Emmet # (Auto) 0.8 (0.1-1.2) X10*3/uL Eos # (Auto) 0.1 (0.0-0.4) X10*3/uL Baso # (Auto) 0.0 (0.0-0.2) X10*3/uL Abs Immat Gran (auto) 0.10 H (0.00-0.03) X10*3/uL Absolute Neuts (auto) 3.4 (2.0-8.3) x10*3/uL Absolute Nucleated RBC 0.000 (0.0-0.012) X10*3/uL Nucleated RBC % (auto) 0.0 (0.0-0.2) /100WBC PT 11.4 (11.1-13.3) SEC INR 0.9 (0.9-1.1) APTT 36.3 (26.0-36.4) SEC D-Dimer High Sensitivty 157 NG/ML Sodium 138 (135-145) mmol/L Potassium 4.1 (3.3-5.1) mmol/L Chloride 108 (96-108) mmol/L Carbon Dioxide 22 (22-29) mmol/L Anion Gap 12 (12-20) BUN 11 (9-16) mg/dL Creatinine 1.05 (0.5-1.4) mg/dL Estim Creat Clear Calc 170.9 Estimated GFR > 60 Random Glucose 98 (60-115) mg/dL Calcium 9.4 (8.4-10.2) mg/dL Magnesium 2.1 (1.6-2.6) mg/dL Total Bilirubin 0.4 (0.0-1.0) mg/dL AST 26 (5-37) U/L ALT 37 (0-40) U/L Alkaline Phosphatase 65 (39-117) U/L Troponin I High Sens < 2.7 (<3.5-35.0) ng/L Total Protein 8.1 H (6.5-8.0) g/dL Albumin 4.0 (3.5-5.0) g/dL TSH 1.72 (0.32-4.0) uIU/mL Valproic Acid 13.4 L (50.0-100.0) mcg/mL Independent Interpretation I performed an independent interpretation of an: EKG Interpretation: Atrial fibrillation with ventricular rate of [address] T wave changes no acute ischemia Discharge Plan Discharge Clinical Impression: Epileptic seizure, Atrial fibrillation, new onset Patient Disposition: Home, Self-Care Instructions: A-fib (Atrial Fibrillation) (ED), Epilepsy (ED) Additional Instructions: Taking medications on time as prescribed Start taking baby aspirin 81 mg daily Lopressor 25 mg twice daily Keep an eye on the heart rate Avoid caffeine drinks If heart rate is more than 120 report to the ER Follow-up with principal java software engineer and your neurologist Prescriptions: New metoprolol tartrate 25 mg tablet 25 mg PO BID Qty: 180 0RF aspirin [Adult Aspirin Regimen] 81 mg tablet,delayed release (DR/EC) 81 mg PO DAILY Qty: 90 0RF No Action acetaminophen [Tylenol Extra Strength] 500 mg tablet 500 mg PO Q6H PRN (Reason: pain or fever) Qty: 20 0RF amoxicillin-pot clavulanate [Augmentin] 875-125 mg tablet 1 tab PO Q12H 7 Days Qty: 14 0RF ibuprofen 600 mg tablet 600 mg PO Q8H PRN (Reason: fever or pain) Qty: 20 0RF Referrals: Tanvir Kelly MD [Physician] - 1 week Stand Alone Forms: Work/School Release
[2023-03-15 17:08] LABS: MANUAL DIFF FLAG NO
[2023-03-15] MEDS: dilTIAZem HCL 50 MG/10 ML VIAL 20 MG IVPUSH (17:09)
[2023-03-15] MEDS: Divalproex Sodium 500 MG TABLET.DR 1500 MG PO (17:09)
[2023-03-15] MEDS: LORazepam 2 MG/ML VIAL 1 MG IVPUSH (17:09)
[2023-03-15 17:10] LABS: Basophils Percent Auto 0.3 % (0-2); Eosinophils Absolute Auto 0.1 X10*3/uL (0.0-0.4); Eosinophils Percent Auto 1.7 % (0-4); Hematocrit 45.8 % (42.0-52.0); Hemoglobin 14.8 g/dl (14.0-18.0); Imm Gran Pct Auto 1.5 % (0.0-0.4); Lymphocytes Absolute Auto 2.1 X10*3/uL (1.2-4.9); Mean Corpuscular HGB Conc 32.3 g/dl (31.0-36.0); Mean Corpuscular Hemoglobin 28.2 pg (27.0-33.0); Mean Corpuscular Volume 87.2 fL (80.0-98.0); Mean Platelet Volume 11.2 fL (9.4-12.4); Monocytes Absolute Auto 0.8 X10*3/uL (0.1-1.2); Monocytes Percent Auto 11.7 % (2-11); Neutrophils Absolute Auto 3.4 x10*3/uL (2.0-8.3); Neutrophils Percent Auto 52.8 % (45-73); Platelet Count 265 X10*3/uL (160-400); Red Blood Count 5.25 X10*6/uL (4.60-5.80); Red Cell Distribution Width 12.3 % (11.0-16.0); White Blood Count 6.5 X10*3/uL (4.8-10.8)
[2023-03-15 17:15] LABS: INTERNATIONAL NORM RATIO 0.9 (0.9-1.1); Prothrombin Time 11.4 SEC (11.1-13.3)
[2023-03-15 17:18] LABS: Partial Thromboplastin Time 36.3 SEC (26.0-36.4)
[2023-03-15 17:24] LABS: Valproate 13.4 mcg/mL (50.0-100.0)
[2023-03-15 17:29] LABS: Alanine Aminotransferase 37 U/L (0-40); Alkaline Phosphatase 65 U/L (39-117); Anion Gap 12 (12-20); Aspartate Amino Transferase 26 U/L (5-37); Bilirubin Total 0.4 mg/dL (0.0-1.0); Blood Urea Nitrogen 11 mg/dL (9-16); Calcium 9.4 mg/dL (8.4-10.2); Carbon Dioxide 22 mmol/L (22-29); Chloride 108 mmol/L (96-108); Creatinine Clr Calc Pharmacy 170.9; Estimated Glomerular Filt Rate > 60; Glucose Random 98 mg/dL (60-115); Magnesium 2.1 mg/dL (1.6-2.6); Potassium 4.1 mmol/L (3.3-5.1); Sodium 138 mmol/L (135-145); Total Protein 8.1 g/dL (6.5-8.0)
[2023-03-15 17:35] LABS: Troponin-I High Sensitivity < 2.7 ng/L (<3.5-35.0)
--- NOTE | 2023-03-15 17:47 | PC.NURSE ---
PT DESAT TO 87-88% ON ROOM AIR HE WAS PLACED ON 2L NC WHILE DROWSY
[2023-03-15] MEDS: Zonisamide 100 MG CAPSULE 300 MG PO (17:55)
[2023-03-15 18:38] LABS: D Dimer High Sensitivity 157 NG/ML
[2023-03-15] MEDS: Metoprolol Tartrate 5 MG/5 ML VIAL IVPUSH (18:46)
[2023-03-15] MEDS: Aspirin 81 MG TAB.CHEW PO (18:46)
[2023-03-15 18:47] VITALS: BP 117/69; PULSE 104; RESP 16; O2SAT 99
[2023-03-15 19:09] LABS: Thyroid Stimulating Hormone 1.72 uIU/mL (0.32-4.0)
[2023-03-15] MEDS: Metoprolol Tartrate 25 MG TABLET PO (20:04)
[2023-03-15 20:05] VITALS: BP 140/79; PULSE 89; RESP 12; O2SAT 98
== END 2023-03-15 20:31 | disposition home or self-care (01) ==
PROVIDERS: Emergency Provider Internal Medicine
DX: G40.909 Epilepsy, unspecified, not intractable, without status epilepticus (principal); I48.91 Unspecified atrial fibrillation; Z91.148 Patient's other noncompliance with medication regimen for other reason
CPT/HCPCS: 36415; 70450; 71045; 80053; 80164; 83735; 84443; 84484; 85025; 85379; 85610; 85730; 93005; 96374; 96375; 99284; 99285; J2060

== ENCOUNTER → 2023-03-15 16:46 | Outpatient (BNV) | payer SELFPAY | PROVIDERS: Emergency Provider Internal Medicine; Visit Provider Internal Medicine | DX: I48.91 Unspecified atrial fibrillation (principal); G40.89 Other seizures | CPT/HCPCS: 93010 ==

== ENCOUNTER 2023-03-15 21:41 | Emergency (ER) | payer MEDICAID, SELFPAY ==
--- NOTE | ~2023-03-15 | XR_ITS ---
EXAMINATION: XR CHEST CLINICAL INFORMATION: Aspiration COMPARISON: Chest x-ray March 11, 2016 TECHNIQUE: Frontal portable view of the chest was obtained. 10:04 PM FINDINGS: No significant abnormality is noted involving the heart, lungs, mediastinum, bony thorax or soft tissues. XR/XR chest 1V IMPRESSION: Unremarkable examination.
--- NOTE | ~2023-03-15 | CT_ITS ---
EXAMINATION: CT HEAD WITHOUT CONTRAST CLINICAL INFORMATION: Seizure. Fall. Vomiting. COMPARISON: Previous head CT most recent September 2021 TECHNIQUE: Contiguous axial imaging was performed from the skull base to vertex without intravenous administration of contrast. This CT examination was performed using dose optimization techniques as appropriate, variously including the following: *Automated exposure control *Adjustment of mA and/or kV according to patient size (this includes techniques or standardized protocols for targeted exams where dose is matched to indication/reason for exam; i.e. extremities or head) *Use of iterative reconstruction technique DLP: 889 mGy-cm FINDINGS: There is no evidence of an extra-axial collection. There is no evidence of intra or extra-axial hemorrhage. The ventricles and extra-axial CSF spaces are appropriate. [place] Toro-white matter differentiation is normal. No mass, mass effect or infarct. No skull fracture. Inflammatory changes in the left maxillary, left ethmoid and bilateral frontal sinuses. CT/CT head/brain wo IV con IMPRESSION: No acute intracranial findings. Sinus disease.
--- NOTE | 2023-03-15 21:44 | ED.SEIZURE ---
HPI - Seizure General Chief Complaint: Seizure Stated Complaint: 2 MIN SEIZURE AFIB Time Seen by Provider: 03/15/23 21:44 Source: EMS Mode of arrival: EMS Limitations: no limitations History of Present Illness HPI Narrative: Patient with history of seizures since age 14 on Depakote and zonisamide which he missed for last few days , just seen here for seizure and new onset AFib was given your Depakote zonisamide and Ativan went home came back as he had another seizure for 2 minutes no head injury no fall started vomiting when he was in the EMS received IV Zofran by EMS. Related Data Previous Rx's Medication Instructions Recorded acetaminophen 500 mg tablet 500 mg PO Q6H PRN pain or fever 07/16/20 (Tylenol Extra Strength) #20 tabs amoxicillin 875 mg-potassium 1 tab PO Q12H 7 days #14 tabs 07/16/20 clavulanate 125 mg tablet (Augmentin) ibuprofen 600 mg tablet 600 mg PO Q8H PRN fever or pain 07/16/20 #20 tabs aspirin 81 mg tablet,delayed 81 mg PO DAILY #90 tabs 03/15/23 release (Adult Aspirin Regimen) metoprolol tartrate 25 mg tablet 25 mg PO BID #180 tabs 03/15/23 Allergies Allergy/AdvReac Type Severity Reaction Status Date / Time No Known Allergies Allergy Verified 11/11/21 19:22 [No Known Allergies*] Review of Systems Review of Systems: Yes all other systems are reviewed and are negative PMFSH Past Medical History Onset Date is defined in the Problem List Problems that require an onset date and time if occurred within 24 hrs of arrival to the ED Aortic Dissection and Rupture; Neurologic impairment; Cardiopulmonary Arrest; Endotracheal Intubation; Insertion or Replacement of Mechanical Circulatory Assist Device Medical History Seizure Social History Social History Alcohol intake: never Smoked in Last 30 Days: No Use of substances other than those prescribed or required for medical reasons: No Advance Directives: No Advance Directives Information Provided: No Physical Exam Vital Signs: Vital Signs: Last Vital Signs Temp 97.8 F 03/15/23 21:55 Pulse 94 03/16/23 00:42 Resp 16 03/16/23 00:42 BP 129/94 H 03/16/23 00:42 Pulse Ox 98 03/16/23 00:42 O2 Del Method Oxymask 03/16/23 00:42 O2 Flow Rate 2 03/16/23 00:42 Oxygen Flow Rate 5 03/15/23 21:55 BMI result Body Mass Index 53.5 Appearance: Alert. Oriented X3. Postictal+ No acute distress. Eyes: PERRLA, No Nystagmus ENT: Pharynx normal. Oral Mucosa moist Neck: Normal inspection. Neck supple. CVS: Normal heart rate and rhythm. Pulses normal. Respiratory: No respiratory distress. Equal air entry bilateral, no wheezing/rales/rhonchi Abdomen: Soft and nontender. Bowel sounds are present, no mass palpable, no CVA tenderness Skin: Skin warm and dry. Normal skin color. Normal skin turgor. Extremities: No lower extremity edema. No calf tenderness Neuro: Oriented X 3. No motor deficit. No sensory deficit.No cerebellar signs , cranial nerves II-XII intact Medications Administered Discontinued Medications Generic Name Dose Route Start Last Admin Trade Name Freq PRN Reason Stop Dose Admin Lorazepam 2 mg 03/16/23 00:15 03/16/23 00:42 Lorazepam 1 Mg Tablet PO 03/16/23 00:16 2 mg ONCE ONE Administration Medical Decision Making Medical Decision Making MDM Narrative: Patient with recurrent seizures came back with 2nd episode of seizure. environmental monitoring technician is showing sinus rhythm as patient had back to back seizures in spite of giving p.o. medications , CT scan of the head is negative for any intracranial injury Patient patient feeling much better now does not want to stay in the hospital will followup with neurologist will give 2 mg of Ativan in the ER Differential Diagnosis Differential Diagnoses: The differential diagnosis associated with the presentation includes Admission/Observation Consideration of admission/observation: Escalation of care including admission/observation considered Consult Healthcare Provider Management of the patient was discussed with: Hospitalist Independent Interpretation I performed an independent interpretation of an: Plain X-Ray and CT Scan Radiology Impression Discussion of test interpretation with radiology: I have reviewed the radiologist's reading. Discharge Plan Discharge Clinical Impression: Epileptic seizure Patient Disposition: Home, Self-Care Instructions: Epilepsy (ED) Additional Instructions: Continue medication as prescribed and follow with your neurologist Prescriptions: No Action acetaminophen [Tylenol Extra Strength] 500 mg tablet 500 mg PO Q6H PRN (Reason: pain or fever) Qty: 20 0RF amoxicillin-pot clavulanate [Augmentin] 875-125 mg tablet 1 tab PO Q12H 7 Days Qty: 14 0RF ibuprofen 600 mg tablet 600 mg PO Q8H PRN (Reason: fever or pain) Qty: 20 0RF metoprolol tartrate 25 mg tablet 25 mg PO BID Qty: 180 0RF aspirin [Adult Aspirin Regimen] 81 mg tablet,delayed release (DR/EC) 81 mg PO DAILY Qty: 90 0RF Interventions: ED Discharge Assessment Last Done: 03/16/23 01:13 Discharge Date/Time: 03/16/23 01:20
[2023-03-15 21:55] VITALS: BP 130/90; PULSE 91; RESP 23; TEMP 36.6; O2SAT 94; BMI 53.5
[2023-03-15 22:23] VITALS: BP 128/88; PULSE 82; RESP 26; O2SAT 96
--- NOTE | 2023-03-15 22:29 | ECG_ITS ---
Test Reason : SEIZURE Blood Pressure : / mmHG Vent. Rate : 078 BPM Atrial Rate : 078 BPM P-R Int : 196 ms QRS Dur : 104 ms QT Int : 364 ms P-R-T Axes : 039 -09 000 degrees QTc Int : 414 ms Normal sinus rhythm ST elevation, consider early repolarization, pericarditis, or injury Abnormal ECG When compared with ECG of 15-MAR-2023 16:52, Sinus rhythm has replaced Atrial fibrillation Vent. rate has decreased BY [address] elevation now present in Lateral leads Referred By: Misha Buenrostro Electronically Signed By:BETTY DONALDSON
--- NOTE | 2023-03-15 22:36 | PC.NURSE ---
Pt recently d/c from ED for seizure and rapid afib. Went home, had another seizure. Witnessed by his girlfriend, lasting approximately 2 minutes. Pts girlfriend lowered him to the ground, no headstrike. One episode of vomiting, EMS gave 4mg IVP Zofran with positive effect. Pt reports 4/10 headache. Pt satting high 80s on room air, this RN placed him on oxymask at 5L, now satting about 95-97%. Pt offers no complaints at this time. Girlfriend at bedside
--- NOTE | 2023-03-15 23:10 | PC.NURSE ---
PT laying in bed, eyes closed and appears to be sleeping. VSS. Girlfriend @ bedside.
[2023-03-16] VITALS: BP 135/75; PULSE 80; RESP 16; O2SAT 97
[2023-03-16 00:42] VITALS: BP 129/94; PULSE 94; RESP 16; O2SAT 98
[2023-03-16] MEDS: LORazepam 1 MG TABLET 2 MG PO (00:42)
== END 2023-03-16 01:20 | disposition home or self-care (01) ==
PROVIDERS: Emergency Provider Internal Medicine
DX: G40.909 Epilepsy, unspecified, not intractable, without status epilepticus (principal)
CPT/HCPCS: 70450; 71045; 93005; 99284

== ENCOUNTER 2024-02-10 18:02 | Emergency (ER) | payer OTHER, SELFPAY ==
[2024-02-10 18:07] VITALS: BP 154/119; PULSE 90; RESP 19; TEMP 36.6; O2SAT 99; BMI 47.3
--- NOTE | 2024-02-10 18:09 | ED.GENADULT ---
HPI - General Adult General Chief complaint: Extremity Injury, Lower Stated complaint: Work injury sustained on 01/26/24 Time Seen by Provider: 02/10/24 18:09 Source: patient, RN notes reviewed and old records reviewed Mode of arrival: ambulatory Limitations: no limitations History of Present Illness ED Provider: Claudio BEAN narrative: 23-year-old male presents for evaluation of left knee pain. 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 This happened 2 weeks ago He has been to both [facility] and [facility] He reports having had x-ray of the left knee an ultrasound of the left knee. He was told that he has a torn left meniscus and fluid in the knee He is due to see Orthopedics next week on the His pain is 6/10 and he has been managing with ibuprofen Related Data Previous Rx's ?Medication ?Instructions ?Recorded naproxen 500 mg tablet 500 mg PO BID PRN pain #30 tabs 02/10/24 Allergies Allergy/AdvReac Type Severity Reaction Status Date / Time No Known Allergies Allergy Verified 02/10/24 18:16 Review of Systems Constitutional: Constitutional: Denies body ache(s), Denies chills, Denies fever(s) and Denies headache(s) Eyes: Eyes: Denies blurry vision ENT: Denies vertigo, Denies dizziness and Denies headache(s) Cardiovascular: Cardiovascular: Denies chest pain Respiratory: Respiratory: Denies cough Gastrointestinal: Gastrointestinal: Denies abdominal pain, Denies nausea and Denies vomiting Musculoskeletal: Musculoskeletal: Reports arthralgias, Reports joint swelling and Reports limited range of motion Integumentary/Breasts: Skin/Breast: Denies rash Neurologic: Denies vertigo, Denies dizziness and Denies headache(s) Physical Exam ED Vital Signs: Vital Signs - 24 hr 02/10/24 18:07 Temperature 98 F Pulse Rate 90 Respiratory Rate 19 Blood Pressure 154/119 H Pulse Oximetry 99 Oxygen Delivery Method Room Air BMI result Body Mass Index 47.3 Const General: healthy appearing, comfortable, no acute distress, alert and awake Nutritional Appearance: well nourished Orientation/consciousness: patient oriented x3 HENMT Head: Yes normocephalic and Yes atraumatic Eyes Eyelids: Yes eyelids normal Conjunctivae: conjunctivae normal Sclerae: sclerae normal Corneas: corneas normal Pupils: Equal, round and reactive pupils present EOM: EOMs intact bilaterally Neck Neck: Yes full ROM Resp Effort & Inspection: normal respiratory effort, able to speak in complete sentences and not labored Skin General skin exam: elasticity normal Neuro General: patient oriented x3 Cranial nerves: Yes Equal, round and reactive pupils present and Yes Bilaterally intact EOM present Cognition (Neuro): normal cognition Extrem Other: Patient has mild edema to the left anterior knee. There was no significant deformity. There was no laxity with anterior drawer testing. The patient has positive valgus and varus strain. There was no calf tenderness Medical Decision Making Medical Decision Making MDM Narrative: 23-year-old male presents for evaluation of left knee pain. He has already been worked up at 2 outside facilities. He was diagnosed with a meniscal tear in his due to follow up with Orthopedics next week. We will treat him with naproxen and a work note for the next few days until he sees Orthopedics. I do not see any indication for further emergent imaging at this time Differential Diagnosis Differential Diagnoses: The differential diagnosis associated with the presentation includes Left knee pain Meniscal injury ACL injury Calf strain Knee sprain Discharge Plan Discharge Clinical Impression: Left knee pain Patient Disposition: Home, Self-Care Instructions: Knee Pain (ED) Additional Instructions: Take naproxen twice daily as needed for pain. This is also an anti-inflammatory medication. Do not mix it with Advil or Aleve Follow-up with orthopedics as planned You may also apply ice to the area Return for new or worsening symptoms Prescriptions: New naproxen 500 mg tablet 500 mg PO BID PRN (Reason: pain) Qty: 30 0RF Stand Alone Forms: Work/School Release Print Language: Kinyarwanda
[2024-02-10 18:58] VITALS: BP 154/119; PULSE 90; RESP 19; TEMP 36.6; O2SAT 99
== END 2024-02-10 18:59 | disposition home or self-care (01) ==
PROVIDERS: Emergency Provider Emergency Medicine
DX: S89.92XA Unspecified injury of left lower leg, initial encounter (principal); X50.1XXA Overexertion from prolonged static or awkward postures, initial encounter; Y93.67 Activity, basketball; Y92.9 Unspecified place or not applicable; Y99.0 Civilian activity done for income or pay; M25.562 Pain in left knee
CPT/HCPCS: 99282; 99283

== ENCOUNTER 2024-06-16 23:27 | Emergency (ER) | payer SELFPAY ==
--- NOTE | ~2024-06-16 | XR_ITS ---
CLINICAL HISTORY: upper respiratory 1 view chest x-ray Comparison: None Findings: Borderline low lung volumes. No consolidation, pneumothorax, or pleural effusion. Cardiac silhouette and mediastinal contours are within limits of normal. No acute fracture. IMPRESSION: No consolidation This document has been electronically signed by: Aaron Jiménez MD on 06/17/2024 00:23:47
[2024-06-16 23:39] VITALS: BP 150/91; PULSE 83; RESP 20; TEMP 36.7; O2SAT 95; BMI 51.6
--- NOTE | 2024-06-16 23:49 | ED.GENADULT ---
HPI - General Adult General Chief complaint: General Medical Stated complaint: sore throat Time Seen by Provider: 06/16/24 23:39 Source: patient Mode of arrival: ambulatory Limitations: no limitations History of Present Illness ED Provider: Dr. Jayashree Montenegro HPI narrative: Patient comes to the emergency room complaining of couple of days of flu-like symptoms, headache, chills, subjective fever. Patient complaining of left ear pain and sore throat. Denies chest pain or shortness of breath. Complaining of nasal congestion Related Data Previous Rx's ?Medication ?Instructions ?Recorded acetaminophen 500 mg tablet 500 mg PO Q6H PRN pain or fever 07/16/20 (Tylenol Extra Strength) #20 tabs amoxicillin 875 mg-potassium 1 tab PO Q12H 7 days #14 tabs 07/16/20 clavulanate 125 mg tablet (Augmentin) ibuprofen 600 mg tablet 600 mg PO Q8H PRN fever or pain 07/16/20 #20 tabs aspirin 81 mg tablet,delayed 81 mg PO DAILY #90 tabs 03/15/23 release (Adult Aspirin Regimen) metoprolol tartrate 25 mg tablet 25 mg PO BID #180 tabs 03/15/23 naproxen 500 mg tablet 500 mg PO BID PRN pain #30 tabs 02/10/24 Allergies Allergy/AdvReac Type Severity Reaction Status Date / Time No Known Allergies Allergy Verified 06/16/24 23:41 [No Known Allergies*] Review of Systems Review of Systems: Constitutional : No Weight loss, complaining of subjective fever, complaining of Chills, No Night Sweats, complaining of fatigue and generalized malaise ENT/Mouth : No Hearing loss, complaining of right ear pain, nasal congestion, no sinus pain, complaining of sore throat Eyes: No Eye Pain, No Swelling, No Redness, No Foreign Body, No Discharge, No Vision Changes Cardiovascular : No Chest Pain, No SOB, No Dyspnea on Exertion, No Orthopnea, No Edema, No Palpitations Respiratory : No Cough, No Sputum, No Wheezing, No Smoke Exposure, No Dyspnea Gastrointestinal : No Nausea, No Vomiting, No Diarrhea, No Constipation, No abdominal Pain, No Hematochezia, No Melena Genitourinary : no irregular bleeding, No Dysuria, No Urinary Frequency, No Hematuria, No Urinary Incontinence, No Urgency, No Flank Pain, No Urinary Flow Changes, No Hesitancy Musculoskeletal : No joint pain, No Myalgias, No Joint Swelling Skin : No Skin Lesions, No rash, complaining of myalgias Neuro : No Weakness, No Numbness, No Paresthesias, No Loss of Consciousness, No Dizziness, No Headache Psych : No Anxiety/Panic, No Depression, No SI/HI/AH/VH, No Social Issues, Heme/Lymph: No Bruising, No Bleeding,No Lymphadenopathy Endocrine : No Polyuria, No Polydipsia, No Temperature Intolerance [facility] Past Medical History Medical History Seizure Social History Social History (System 02/13/24 @ 10:18 by Anisa Dunn) Alcohol intake: never Advance Directives: No Advance Directives Information Provided: Yes Do you have a plan to hurt others: No Plan Physical Exam ED Vital Signs: Vital Signs - 24 hr 06/16/24 23:39 Temperature 98.1 F Pulse Rate 83 Respiratory Rate 20 Blood Pressure 150/91 H Pulse Oximetry 95 Oxygen Delivery Method Room Air BMI result Body Mass Index 51.6 Const Other: Appearance: Alert. Oriented X3. No acute distress. Eyes: Pupils equal, round and reactive to light. ENT: Erythematous oropharynx, no vesicles, moist mucous membranes Neck: Normal inspection. Neck supple. No lymph nodes noted. No crepitus CVS: Normal heart rate and rhythm. Pulses normal. Normal S1 and S2 Respiratory: No respiratory distress. Breath sounds normal. No Wheezing. No rales Abdomen: Soft and nontender. No rigidity. No distention. Skin: Skin warm and dry. Normal skin color. Normal skin turgor. Extremities: No lower extremity edema. No Lacerations. No Rash Neuro: Oriented X 3. No motor deficit. No sensory deficit. Moving all extremities. No slurred speech. CN 2 through 12 grossly intact Psych: calm, cooperative, normal affect Medications Administered Discontinued Medications Generic Name Dose Route Start Last Admin Trade Name Freq PRN Reason Stop Dose Admin Dexamethasone 4 mg 06/16/24 23:48 06/17/24 00:28 Dexamethasone 4 Mg Tablet PO 06/16/24 23:49 4 mg ONCE ONE Administration Lidocaine HCl 15 ml 06/16/24 23:48 06/17/24 00:28 Lidocaine Hcl Viscous 2 % 15 Ml Solution MUCOUS MEM 06/16/24 23:49 15 ml ONCE ONE Administration Medical Decision Making Medical Decision Making [facility] Narrative: Chest x-ray: Does not show any acute abnormality Serology negative for influenza COVID RSV and strep Patient likely has viral pharyngitis She was empirically given p.o Decadron and viscous lidocaine. Differential Diagnosis Differential Diagnoses: The differential diagnosis associated with the presentation includes (As above) Lab Data [facility] Lab Attestation statement: I reviewed the patient's lab results. Labs: Lab Results 06/17/24 Range/Units 00:04 Influenza Type A (PCR) NEGATIVE (Negative) Influenza Type B (PCR) NEGATIVE (Negative) RSV RNA Qual (PCR) NEGATIVE (Negative) SARS-CoV-2 RNA (RT-PCR) NEGATIVE (Negative) S. pyogenes GrpA SARAH Negative (Negative) Independent Interpretation I performed an independent interpretation of an: Plain X-Ray Radiology Impression Discussion of test interpretation with radiology: I have reviewed the radiologist's reading. Radiologist Impression: Borderline low lung volumes. No consolidation, pneumothorax, or pleural effusion. Cardiac silhouette and mediastinal contours are within limits of normal. No acute fracture. IMPRESSION: No consolidation Discharge Plan Discharge Clinical Impression: Acute viral pharyngitis, Viral URI Patient Disposition: Home, Self-Care Instructions: Pharyngitis (ED), Upper Respiratory Infection (ED) Additional Instructions: Please follow-up with your primary care physician tomorrow. If you have any worsening or new symptoms, please return to the emergency room or call 911 Prescriptions: No Action acetaminophen [Tylenol Extra Strength] 500 mg tablet 500 mg PO Q6H PRN (Reason: pain or fever) Qty: 20 0RF amoxicillin-pot clavulanate [Augmentin] 875-125 mg tablet 1 tab PO Q12H 7 Days Qty: 14 0RF ibuprofen 600 mg tablet 600 mg PO Q8H PRN (Reason: fever or pain) Qty: 20 0RF metoprolol tartrate 25 mg tablet 25 mg PO BID Qty: 180 0RF aspirin [Adult Aspirin Regimen] 81 mg tablet,delayed release (DR/EC) 81 mg PO DAILY Qty: 90 0RF naproxen 500 mg tablet 500 mg PO BID PRN (Reason: pain) Qty: 30 0RF Print Language: Tunisian
[2024-06-17] MEDS: Lidocaine HCl Viscous 2 % 15 ML SOLUTION MUCOUS MEM (00:28)
[2024-06-17] MEDS: dexAMETHasone 4 MG TABLET PO (00:28)
[2024-06-17 00:41] LABS: IDNOW Serial# 6674DD1D; Strep A Nucleic Acid Negative (Negative)
[2024-06-17 00:47] LABS: Influenza A PCR NEGATIVE (Negative); Influenza B PCR NEGATIVE (Negative); Resp Syncy Virus RNA Qual PCR NEGATIVE (Negative); SARS COV2 PCR INHOUSE NEGATIVE (Negative)
[2024-06-17 01:45] VITALS: BP 122/66; PULSE 85; RESP 16; TEMP 36.4; O2SAT 96
[2024-06-17 02:03] VITALS: BP 122/66; PULSE 85; RESP 16; TEMP 36.4; O2SAT 96
== END 2024-06-17 02:05 | disposition home or self-care (01) ==
PROVIDERS: Emergency Provider Emergency Medicine
DX: J06.9 Acute upper respiratory infection, unspecified (principal); J02.9 Acute pharyngitis, unspecified; R51.9 Headache, unspecified; H92.02 Otalgia, left ear; R09.81 Nasal congestion
CPT/HCPCS: 0241U; 71045; 87651; 99283; 99284; J8540

== ENCOUNTER → 2024-06-16 23:50 | Outpatient (BNV) | payer SELFPAY | PROVIDERS: Emergency Provider Emergency Medicine; Visit Provider Radiology Neuroradiology | DX: J06.9 Acute upper respiratory infection, unspecified (principal) | CPT/HCPCS: 71045 ==

== ENCOUNTER 2024-06-18 03:20 | Emergency (ER) | payer SELFPAY ==
--- NOTE | ~2024-06-18 | CT_ITS ---
CLINICAL HISTORY: Tonsillar abscess CT soft tissue neck with contrast Comparison: None Findings: The visualized intracranial contents are unremarkable. There is a small multiloculated left-sided peritonsillar abscess , with prominent resulting edema and narrowing of the oropharynx. Left-sided regional adenopathy. Salivary glands are within normal limits. No sialoliths. No suspicious thyroid nodules. Partial opacification of the ethmoid air cells and maxillary sinuses. No consolidation at the lung apices. No acute fracture or dislocation. IMPRESSION: Small multiloculated left-sided peritonsillar abscess with resulting edema and narrowing of the oropharynx. Resulting regional adenopathy. Paranasal sinus disease. This document has been electronically signed by: Arnaldo Horowitz MD on 06/18/2024 06:59:44
[2024-06-18 03:29] VITALS: BP 147/92; PULSE 76; RESP 20; TEMP 36.4; O2SAT 94; BMI 51.6
--- OUTSIDE RECORDS SUMMARY | 2024-06-18 03:49 | XMS_ITS | Referral Summary ---
Author Organization [facility] Address [address] [place] [address] Care Team Providers Care Hvac Commercial Salesperson Name Role Phone Ezekiel Cabrera Primary Care Provider [phone] Allergies No known active allergies Medications clonazePAM (KlonoPIN) 2 mg disintegrating tablet ClonazePAM 2 MG Oral Tablet Disintegrating place one tablet in side of cheek for seizure > or equal to 5 minutes in duration. Quantity: 10; Refills: 0 BULMARO RIZO MD; Started Active 08/11/19 16 Active lisinopril (PRINIVIL,ZESTRIL) 40 mg tablet 02/02/20 17 Active divalproex ER (DEPAKOTE ER) 500 mg tabletIndications: Other generalized epilepsy, not intractable, without status epilepticus (HCC) 500mg AM and 1500mg PM by mouth 120 tablet 01/14/20 18 Active zonisamide (ZONEGRAN) 100 mg capsuleIndications :Other generalized epilepsy, not intractable, without status epilepticus (HCC) Take 4 capsules orally at bedtime 120 capsule 01/14/20 18 Active ibuprofen (MOTRIN) 800 mg tablet Take 1 tablet (800 mg total) by mouth 3 times a day. 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 Social History Tobacco Use Types Packs/Day Years Used Date Smoking Tobacco: Never Comments:: Sex and Gender Information Value Date Recorded Sex Assigned at Not on file Legal Sex Male 7:06 PM EDT Gender Identity Not on file Sexual Orientation Not on file Last Filed Vital Signs Vital Sign Reading Time Taken Comments Blood Pressure 152/93 07/18/2020 6:30 AM EDT Pulse 60 07/18/2020 6:30 AM EDT Temperature 36.3 ??C (97.4 ??F) 07/18/2020 2:00 AM ED T Respiratory Rate 18 07/18/2020 6:30 AM EDT Oxygen Saturation 95% 07/18/2020 6:30 AM EDT Inhaled Oxygen Concentration - - Weight 125.1 kg (275 lb 12.7 oz) 2017 11:32 AM EDT Height 176 cm (5' 9.29 ) 07/04/2017 11: 32 AM EDT Body Mass Index 40.39 07/04/2017 11:32 AM EDT Plan of Treatment Not on file Procedures * Due to [place] [employer] law, this organization might not be sharing negative HIV tests. Procedure Name Priority Date/Time Associated Diagnosis Comments BASIC METABOLIC PANEL STAT 07/18/2020 4:18 AM EDT from Last 3 Months or Most Recently Relevant to Health Maintenance Results * Due to [place] [employer] law, this organization might not be sharing negative HIV tests. * (ABNORMAL) Basic Metabolic Panel (07/18/2020 4:18 AM EDT) NA 139 135 - 145 mmol/L 07/18/2020 4:59 AM EDT [facility] K 4.5 3.5 - 5.3 mmol/L 07/18/2020 4:59 AM EDT [facility] Cl 109 97 - 110 mmol/L 07/18/2020 4:59 AM EDT [facility] CO2 21(L) 24 - 32 mmol/L 07/18/2020 4:59 AM EDT [facility] BUN 21 7 - 23 mg/dL 07/18/2020 4:59 AM EDT [facility] Creatinine 1.00 0.60 - 1.30 mg/dL 07/18/2020 4:59 AM EDT [facility] Glucose 120(H) 70 - 99 mg/dL 07/18/2020 4:59 AM EDT [facility] Calcium 9.7 8.7 - 10.7 mg/dL 07/18/2020 4:59 AM EDT [facility] Anion Gap 9 5 - 15 07/18/2020 4:59 AM EDT [facility] eGFR Non- >90 >=90 mL/min/BS A 07/18/2020 4:59 AM EDT [facility] eGFR >90 >=90 mL/min/BS A 07/18/2020 4:59 AM EDT [facility] Comment: Units = mL/min/1.73 m2 Glomerular Filtration Rate (GFR) is estimated based on the CKD-EPI Creatinine Equation (2009). Stage ?Description ? GFR 1 ? Normal ? >=90 mL/min/BSA 2 ? Mildly decreased GFR ? 60-89 mL/min/BSA 3 ? Moderately decreased GFR ? 30-59 mL/min/BSA 4 ? Severely decreased GFR ? 15-29 mL/min/BSA 5 ? Kidney Failure ? <15 mL/min/BSA Blood Structure of peripheral vein / Unknown Venipuncture / Unknown 07/18/2020 4:18 AM EDT 07/18/2020 4:33 AM EDT us Olivia Olvera MD LAB BLOOD ORDERABLES Final Result [facility] [address] [place] [address], from Last 3 Months or Most Recently Relevant to Health Maintenance [place] [id number] Care Teams Hvac Commercial Salesperson Relationship Specialty Start Date End Date Ezekiel Cabrera [address] [place] [id number] PCP - General Internal Medicine 07/04/17
--- OUTSIDE RECORDS SUMMARY | 2024-06-18 03:49 | XMS_ITS | Clinical Summary ---
Author Organization [facility] Address [address] [place] [id number] Phone Care Team Providers Care Traveling Electrician Name Role Phone Devyn Miranda MD Primary Care Provider Unavailabl e Immunizations Immunization Administration Dates Next Due DTaP 5 06/19/2003, 3,07/23/1999,05/05/1999, 9 Hep B, ped/adol 02/26/2000,05/05/1999,1998 Hib (PRP-T) 02/26/2000,07/23/1999,05/05/1999 ,1998 IPV 06/28/2003,11/27/2002,05/05/1999 ,1998 MMR 06/19/2003,02/26/2000 Pneumococcal Conjugate 11/19/2002,02/26/2000 Varicella 02/26/2000 Family History Relation Name Status Comments Brother 1 Alive Brother: Alive and well, Alive and well Brother 2 Alive Brother: Alive and well, Alive and well Mother Alive Mother: Alive a nd well Other No family histo ry of ADD/ADHD, Family history of Asthma, Family history of Migraines, No family history of Sudden /OK under age 55, Family history of Diabetes mellitus, No family history of Developmental dislocation of hip, No family history of Autism, No family history of Strabismus/amblyopia, No family history of Obesity, No family history of Elevated cholesterol, Family history of Seizure disorder, No family history of Deafness Sister Alive Sister: Alive a nd well Social History Tobacco Use Types Packs/Day Years Used Date Smoking Tobacco: Never Assessed Sex and Gender Information Value Date Recorded Sex Assigned at Not on file Legal Sex Male 4:11 PM EDT Gender Identity Not on file Sexual Orientation Not on file Plan of Treatment Health Maintenance Due Date Last Done Comments Varicella Vaccines (2 of 2 - 2-dose childhood series) 07/17/2003 02/26/2000 DTaP,Tdap,and Td Vaccines (6 - Tdap) 2009 06/19/2003, 11/19/2002, 07/23/1999, Additional history exists HPV Vaccines (1 - Male 3-dose series) 2013 Influenza Vaccines (#1) 2023 COVID-19 Vaccine (1 - season) 2023 HIB Vaccines Completed 02/26/2000, 06/29, 05/05/1999, Additional history exists Hepatitis B Vaccines Completed 02/26/2000, 05/05/1999, 1998 Pneumococcal Vaccine Completed 11/19/2002, 02/26/20 MMR Vaccines Completed 06/19/2003, 02/26/2000 IPV Vaccines Completed 06/28/2003, 10/31, 05/05/1999, Additional history exists Hepatitis A Vaccines Aged Out No long er eligible based on patient's age to complete this topic Men B Vaccine Aged Out No longer elig ible based on patient's age to complete this topic Meningococcal Vaccine Aged Out No renan carlos eligible based on patient's age to complete this topic Care Teams Traveling Electrician Relationship Specialty Start Date End Date Devyn Miranda MD PCP - General 10/08/16
--- OUTSIDE RECORDS SUMMARY | 2024-06-18 03:49 | XMS_ITS | Encounter Summary ---
Author Organization [facility] Address [address] [place] [id number] Phone Care Team Providers Care Chip Frier Name Role Phone Devyn Miranda MD Primary Care Provider Unavailabl e Encounter Details Date Type Department Care Team (Late st Contact Info) Description 10/14/2016 Conversion Encounter [facility] - [address] [address] Social History Tobacco Use Types Packs/Day Years Used Date Smoking Tobacco: Never Assessed Sex and Gender Information Value Date Recorded Sex Assigned at Not on file Legal Sex Male 4:11 PM EDT Gender Identity Not on file Sexual Orientation Not on file documented as of this encounter Plan of Treatment Not on file documented as of this encounter Visit Diagnoses Not on filedocumented in this encounter Care Teams Chip Frier Relationship Specialty Start Date End Date Devyn Miranda MD PCP - General 10/08/16 documented as of this encounter
--- OUTSIDE RECORDS SUMMARY | 2024-06-18 03:49 | XMS_ITS | Clinical Summary ---
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 Family History Medical History Relation Name Comments Other Mother Family History of epilepsy Relation Name Status Comments Mother Social History Tobacco Use Types Packs/Day Years [...] 07/04/2017 11:32 AM EDT Plan of Treatment Health Maintenance Due Date Last Done Comments HIV Screening 1998 Hepatitis C Screening 1998 Varicella Vaccines (2 of 2 - 2-dose childhood series) 2002 02/26/2000 DTaP,Tdap,and Td Vaccines (6 - Tdap) 2009 06/19/2003, 11/19/2002, 07/23/1999, Additional history exists HPV Vaccines (1 - Male 3-dos e series) 2013 Basic Metabolic Panel 07/18/2021 07/18/2020 , 07/04/2017, 02/20/2016 COVID-19 Vaccine ( - 2023-2 5 season) 2023 Alcohol/Substance Use Screening 02/29/2024 Depression Screening and Follow-Up 02/29/2024 Social Drivers of Health Angelique ual Screening 02/29/2024 Influenza Vaccine (Season Ended) 2024 RSV Vaccine (60+ years old a nd patients) (1 - 1-dose 75+ series) 2073 Hepatitis B Vaccines Completed 02/26/2000, 05/05/1999, 1998 Pneumococcal Vaccine: Pediat stephanie (0-5 Years) and At-Risk Patients (6-50 Years) Completed 11/19/2002, 02/26/2000 Procedures * Due to [place] [employer] law, this organization might not be sharing negative HIV tests. Procedure Name Priority Date/Time Associated Diagnosis Comments BASIC METABOLIC PANEL STAT 07/18/2020 4:18 AM EDT from Last 3 Months or Most Recently Relevant to Health Maintenance Results * Due to [place] [employer] law, this organization might not be sharing negative HIV tests. * (ABNORMAL) Basic Metabolic Panel (07/18/2020 4:18 AM EDT) NA 139 135 - 145 mmol/L 07/18/2020 4:59 AM EDT [facility] K 4.5 3.5 - 5.3 mmol/L 07/18/2020 4:59 AM EDT [facility] Cl 109 97 - 110 mmol/L 07/18/2020 4:59 AM EDT [facility] CO2 21(L) 24 - 32 mmol/L 07/18/2020 4:59 AM EDT [facility] BUN 21 7 - 23 mg/dL 07/18/2020 4:59 AM EDT [facility] Creatinine 1.00 0.60 - 1.30 mg/dL 07/18/2020 4:59 AM EDT [facility] Glucose 120(H) 70 - 99 mg/dL 07/18/2020 4:59 AM EDT [facility] Calcium 9.7 8.7 - 10.7 mg/dL 07/18/2020 4:59 AM EDT [facility] Anion Gap 9 5 - 15 07/18/2020 4:59 AM EDT [facility] eGFR Non- >90 >=90 mL/min/BS A 07/18/2020 4:59 AM EDT [facility] eGFR >90 >=90 mL/min/BS A 07/18/2020 4:59 AM EDT [facility] Comment: Units = mL/min/1.73 [...] Olvera MD LAB BLOOD ORDERABLES Final Result [facility] [address] [place] [address], from Last 3 Months or Most Recently Relevant to Health Maintenance Insurance [facility] Care Teams Shingle Sawyer Relationship Specialty Start Date End Date Ezekiel Cabrera [address] [place] [id number] PCP - General Internal Medicine 07/04/17
--- NOTE | 2024-06-18 04:05 | ED.URI ---
HPI - URI/Sore Throat General Chief Complaint: Upper Respiratory Symptoms Stated Complaint: Sore throat, cough, SOB Time Seen by Provider: 06/18/24 04:05 Source: patient Mode of arrival: ambulatory Limitations: no limitations History of Present Illness ED Provider: HPI Narrative: Patient has been coughing with sore throat for last 3 days had fever body aches was seen here yesterday COVID flu RSV and strep negative patient did complain of painful to swallow which is getting worse with more pain in the left side Related Data Previous Rx's ?Medication ?Instructions ?Recorded acetaminophen 500 mg tablet 500 mg PO Q6H PRN pain or fever 07/16/20 (Tylenol Extra Strength) #20 tabs amoxicillin 875 mg-potassium 1 tab PO Q12H 7 days #14 tabs 07/16/20 clavulanate 125 mg tablet (Augmentin) ibuprofen 600 mg tablet 600 mg PO Q8H PRN fever or pain 07/16/20 #20 tabs aspirin 81 mg tablet,delayed 81 mg PO DAILY #90 tabs 03/15/23 release (Adult Aspirin Regimen) metoprolol tartrate 25 mg tablet 25 mg PO BID #180 tabs 03/15/23 naproxen 500 mg tablet 500 mg PO BID PRN pain #30 tabs 02/10/24 amoxicillin 875 mg-potassium 1 tab PO BID #20 tabs 06/18/24 clavulanate 125 mg tablet Allergies Allergy/AdvReac Type Severity Reaction Status Date / Time No Known Allergies Allergy Verified 06/18/24 03:31 [No Known Allergies*] Review of Systems Review of Systems: Yes all other systems are reviewed and are negative PMFSH Past Medical History Medical History Seizure Social History Social History Alcohol intake: current Alcohol intake frequency: holidays/special occasions only Smoked in Last 30 Days: No Use of substances other than those prescribed or required for medical reasons: No Advance Directives: No Advance Directives Information Provided: Yes Physical Exam Vital Signs: Vital Signs: Last Vital Signs Temp 98.3 F 06/18/24 13:37 Pulse 66 06/18/24 13:37 Resp 17 06/18/24 13:37 BP 123/85 06/18/24 13:37 Pulse Ox 94 06/18/24 13:37 O2 Del Method Room Air 06/18/24 13:37 BMI result Body Mass Index 51.6 Appearance: Alert. Oriented X3. No acute distress. ENT: Erythematous with left peritonsillar swelling Neck: Normal inspection. Neck supple. CVS: Normal heart rate and rhythm. Pulses normal. Respiratory: No respiratory distress. Equal air entry bilateral, no wheezing/rales/rhonchi Abdomen: Soft and nontender. Bowel sounds are present, Skin: Skin warm and dry. Normal skin color. Normal skin turgor. Extremities: No lower extremity edema. No calf tenderness Neuro: Oriented X 3. Course Reevaluation(s) Reevaluation #1: CT resulted he has multi loculated peritonsillar abscess, this is a 2nd trip to the emergency department in 24 hour, most likely will need admission for IV antibiotic,unable to eat and drink . I discussed the case with the ENT at [facility] patient was accepted in transfer by the hospitalist at [facility] Dr Huffman/conference center coordinator Janice. Imaging sent to [facility] . Pt accepted in transfer to [facility] Time: 08:13 Medications Administered Discontinued Medications Generic Name Dose Route Start Last Admin Trade Name Freq PRN Reason Stop Dose Admin Ceftriaxone Sodium 1 gm 06/18/24 04:08 06/18/24 04:30 Ceftriaxone Sodium 1 Gm Vial IVPUSH 06/18/24 04:09 1 gm ONCE ONE Administration Dexamethasone Sodium Phosphate 10 mg 06/18/24 04:08 06/18/24 04:30 Dexamethasone Sod Phosphate 10 Mg/Ml Vial IVPUSH 06/18/24 04:09 10 mg ONCE ONE Administration Clindamycin Phosphate 900 mg in 50 mls @ 50 mls/hr 06/18/24 08:15 06/18/24 09:52 Cleocin IV 06/18/24 09:14 Infused ONCE ONE Infusion Iohexol 85 ml 06/18/24 04:56 06/18/24 04:57 Iohexol 350 Mg/Ml 100 Ml Infus..Btl IV 06/18/24 04:57 85 ml ONCE ONE Administration Ketorolac Tromethamine 30 mg 06/18/24 06:58 06/18/24 07:04 Ketorolac Tromethamine 30 Mg/Ml Vial IVPUSH 06/18/24 06:59 30 mg ONCE ONE Administration Medical Decision Making Medical Decision Making [facility] Narrative: Patient with possible left peritonsillar abscess labs are normal , will do I and D pending CT scan at this time patient is not in respiratory distress no stridor patient is signed out to Dr. Singh pending CT scan Differential Diagnosis Differential Diagnoses: The differential diagnosis associated with the presentation includes Peritonsillar abscess/tonsillitis/strep Lab Data [facility] Lab Attestation statement: I reviewed the patient's lab results. 06/18/24 04:19 06/18/24 04:19 Labs: Lab Results 06/18/24 Range/Units 04:19 WBC 9.5 (4.8-10.8) X10*3/uL RBC 4.81 (4.60-5.80) X10*6/uL Hgb 13.5 L (14.0-18.0) g/dl Hct 41.2 L (42.0-52.0) % MCV 85.7 (80.0-98.0) fL MCH 28.1 (27.0-33.0) pg MCHC 32.8 (31.0-36.0) g/dl RDW 12.7 (11.0-16.0) % Plt Count 248 (160-400) X10*3/uL MPV 11.6 (9.4-12.4) fL Immature Gran % (Auto) 0.4 (0.0-0.4) % Neut % (Auto) 66.4 (45-73) % Lymph % (Auto) 19.9 L (20-40) % [place] % (Auto) 11.3 H (2-11) % Eos % (Auto) 1.6 (0-4) % Baso % (Auto) 0.4 (0-2) % Lymph # (Auto) 1.9 (1.2-4.9) X10*3/uL [place] # (Auto) 1.1 (0.1-1.2) X10*3/uL Eos # (Auto) 0.2 (0.0-0.4) X10*3/uL Baso # (Auto) 0.0 (0.0-0.2) X10*3/uL Abs Immat Gran (auto) 0.04 H (0.00-0.03) X10*3/uL Absolute Neuts (auto) 6.3 (2.0-8.3) x10*3/uL Absolute Nucleated RBC 0.000 (0.0-0.012) X10*3/uL Nucleated RBC % (auto) 0.0 (0.0-0.2) /100WBC Sodium 142 (135-145) mmol/L Potassium 3.8 (3.3-5.1) mmol/L Chloride 109 H (96-108) mmol/L Carbon Dioxide 23 (22-29) mmol/L Anion Gap 14 (12-20) BUN 17 H (9-16) mg/dL Creatinine 0.87 (0.5-1.4) mg/dL Estim Creat Clear Calc 200.3 Estimated GFR > 60 Random Glucose 158 H (60-115) mg/dL Calcium 9.3 (8.4-10.2) mg/dL Discharge Plan Discharge Clinical Impression: Acute tonsillitis, Abscess, peritonsillar Patient Disposition: [facility] Transfer Details: Court, el[facility] at [facility]: [place] [address] [address], DR HUFFMAN ACCEPTING Additional Instructions: Take antibiotic as prescribed Follow with your PCP if not better Prescriptions: New amoxicillin-pot clavulanate 875-125 mg tablet 1 tab PO BID Qty: 20 0RF No Action acetaminophen [Tylenol Extra Strength] 500 mg tablet 500 mg PO Q6H PRN (Reason: pain or fever) Qty: 20 0RF amoxicillin-pot clavulanate [Augmentin] 875-125 mg tablet 1 tab PO Q12H 7 Days Qty: 14 0RF ibuprofen 600 mg tablet 600 mg PO Q8H PRN (Reason: fever or pain) Qty: 20 0RF metoprolol tartrate 25 mg tablet 25 mg PO BID Qty: 180 0RF aspirin [Adult Aspirin Regimen] 81 mg tablet,delayed release (DR/EC) 81 mg PO DAILY Qty: 90 0RF naproxen 500 mg tablet 500 mg PO BID PRN (Reason: pain) Qty: 30 0RF Print Language: Ugandan
[2024-06-18 04:23] LABS: MANUAL DIFF FLAG NO
[2024-06-18 04:24] LABS: Basophils Percent Auto 0.4 % (0-2); Eosinophils Absolute Auto 0.2 X10*3/uL (0.0-0.4); Eosinophils Percent Auto 1.6 % (0-4); Hematocrit 41.2 % (42.0-52.0); Hemoglobin 13.5 g/dl (14.0-18.0); Imm Gran Abs Auto 0.04 X10*3/uL (0.00-0.03); Imm Gran Pct Auto 0.4 % (0.0-0.4); Lymphocytes Absolute Auto 1.9 X10*3/uL (1.2-4.9); Lymphocytes Percent Auto 19.9 % (20-40); Mean Corpuscular HGB Conc 32.8 g/dl (31.0-36.0); Mean Corpuscular Hemoglobin 28.1 pg (27.0-33.0); Mean Corpuscular Volume 85.7 fL (80.0-98.0); Mean Platelet Volume 11.6 fL (9.4-12.4); Monocytes Absolute Auto 1.1 X10*3/uL (0.1-1.2); Monocytes Percent Auto 11.3 % (2-11); Neutrophils Absolute Auto 6.3 x10*3/uL (2.0-8.3); Neutrophils Percent Auto 66.4 % (45-73); Platelet Count 248 X10*3/uL (160-400); Red Blood Count 4.81 X10*6/uL (4.60-5.80); Red Cell Distribution Width 12.7 % (11.0-16.0); White Blood Count 9.5 X10*3/uL (4.8-10.8)
[2024-06-18] MEDS: cefTRIAXone sodium 1 GM VIAL IVPUSH (04:30)
[2024-06-18] MEDS: dexAMETHasone sod phosphate 10 MG/ML VIAL IVPUSH (04:30)
[2024-06-18 04:40] LABS: Anion Gap 14 (12-20); Blood Urea Nitrogen 17 mg/dL (9-16); Calcium 9.3 mg/dL (8.4-10.2); Carbon Dioxide 23 mmol/L (22-29); Chloride 109 mmol/L (96-108); Creatinine Clr Calc Pharmacy 200.3; Estimated Glomerular Filt Rate > 60; Glucose Random 158 mg/dL (60-115); Potassium 3.8 mmol/L (3.3-5.1); Sodium 142 mmol/L (135-145)
--- NOTE | 2024-06-18 04:44 | PC.NURSE ---
IV line place in LAC, pt tolerated well. labs sent down, en route to CT.
[2024-06-18] MEDS: iohexoL 350 MG/ML 100 ML INFUS..BTL 85 ML IV (04:57)
[2024-06-18 05:58] VITALS: BP 154/80; PULSE 77; RESP 20; TEMP 36.4; O2SAT 94
[2024-06-18] MEDS: Ketorolac Tromethamine 30 MG/ML VIAL IVPUSH (07:04)
[2024-06-18 07:05] VITALS: BP 142/93; PULSE 80; RESP 14; TEMP 36.4; O2SAT 94
[2024-06-18] MEDS: Clindamycin Phosphate/D5W 900 MG/50 ML PIGGYBACK 50 MG IV (08:52)
[2024-06-18 08:54] VITALS: BP 131/63; PULSE 73; RESP 19; TEMP 36.4; O2SAT 94
[2024-06-18 13:37] VITALS: BP 123/85; PULSE 66; RESP 17; TEMP 36.8; O2SAT 94
--- NOTE | 2024-06-18 14:59 | PC.NURSE ---
report given to Leif on W3
== END 2024-06-18 16:21 | disposition short-term general hospital (02) ==
PROVIDERS: Internal Medicine; Emergency Provider Emergency Medicine
DX: J03.90 Acute tonsillitis, unspecified (principal); R05.9 Cough, unspecified; R06.02 Shortness of breath; M79.10 Myalgia, unspecified site; R50.9 Fever, unspecified
CPT/HCPCS: 36415; 70491; 80048; 85025; 96365; 96375; 99285; J0696; J0736; J1100; J1885; Q9967

== ENCOUNTER → 2024-06-18 04:08 | Outpatient (BNV) | payer SELFPAY | PROVIDERS: Emergency Provider Internal Medicine; Visit Provider Radiology Vascular & Interventional Radiology | DX: J36 Peritonsillar abscess (principal); J39.2 Other diseases of pharynx; J34.89 Other specified disorders of nose and nasal sinuses | CPT/HCPCS: 70491 ==

== ENCOUNTER 2024-07-12 16:01 | Emergency (ER) | payer SELFPAY ==
[2024-07-12 16:10] VITALS: BP 156/107; PULSE 92; RESP 18; TEMP 37.4; O2SAT 96; BMI 52.7
--- NOTE | 2024-07-12 16:10 | ED.GENADULT ---
HPI - General Adult General Chief complaint: Headache Stated complaint: migraine x6 days Time Seen by Provider: 07/12/24 21:08 Source: patient Mode of arrival: ambulatory Limitations: no limitations History of Present Illness ED Provider: HPI narrative: Patient with no prior history of headache comes here with headache started about 6 days ago does have a cough and sore throat for last few days low-grade fever no other family member sick has light sensitivity and nausea and vomiting Related Data Previous Rx's ?Medication ?Instructions ?Recorded acetaminophen 500 mg tablet 500 mg PO Q6H PRN pain or fever 07/16/20 (Tylenol Extra Strength) #20 tabs amoxicillin 875 mg-potassium 1 tab PO Q12H 7 days #14 tabs 07/16/20 clavulanate 125 mg tablet (Augmentin) ibuprofen 600 mg tablet 600 mg PO Q8H PRN fever or pain 07/16/20 #20 tabs aspirin 81 mg tablet,delayed 81 mg PO DAILY #90 tabs 03/15/23 release (Adult Aspirin Regimen) metoprolol tartrate 25 mg tablet 25 mg PO BID #180 tabs 03/15/23 naproxen 500 mg tablet 500 mg PO BID PRN pain #30 tabs 02/10/24 amoxicillin 875 mg-potassium 1 tab PO BID #20 tabs 06/18/24 clavulanate 125 mg tablet Allergies Allergy/AdvReac Type Severity Reaction Status Date / Time No Known Allergies Allergy Verified 07/12/24 16:12 [No Known Allergies*] Review of Systems Review of Systems: Yes all other systems are reviewed and are negative PMFSH Past Medical History Medical History Seizure Social History Social History Alcohol intake: current Alcohol intake frequency: holidays/special occasions only Smoked in Last 30 Days: No Use of substances other than those prescribed or required for medical reasons: No Advance Directives: No Advance Directives Information Provided: No Physical Exam ED Vital Signs: Vital Signs - 24 hr 07/12/24 16:10 07/12/24 20:21 Temperature 99.3 F 97.9 F Pulse Rate 92 89 Respiratory Rate 18 16 Blood Pressure 156/107 H 145/98 H Pulse Oximetry 96 97 Oxygen Delivery Method Room Air Room Air BMI result Body Mass Index 52.7 Appearance: Alert. Oriented X3. No acute distress. Eyes: PERRLA, No Nystagmus no pallor or icterus light sensitive ENT: Pharynx normal. Oral Mucosa moist Neck: Normal inspection. Neck supple. Kernig sign negative CVS: Normal heart rate and rhythm. Pulses normal. Respiratory: No respiratory distress. Equal air entry bilateral, no wheezing/rales/rhonchi Abdomen: Soft and nontender. Bowel sounds are present, no mass palpable, no CVA tenderness Skin: Skin warm and dry. Normal skin color. Normal skin turgor. Extremities: No lower extremity edema. No calf tenderness Neuro: Oriented X 3. No motor deficit. No sensory deficit.No cerebellar signs , cranial nerves II-XII intact Course Course Course Narrative: RME, this is a rapid medical exam performed by Phil Snyder please refer to primary provider for complete H&P- 23 year old male presents for evaluation of headache, chills, and fevers. His symptoms started 5 days ago. He reports he was out of one of his seizure meds when the headaches started but was able to get it filled yesterday. Plan for labs and viral swabs Medications Administered Discontinued Medications Generic Name Dose Route Start Last Admin Trade Name Freq PRN Reason Stop Dose Admin Ondansetron HCl 4 mg 07/12/24 21:34 07/12/24 21:46 Ondansetron Odt 4 Mg Tab.Rapdis TRANSLINGU 07/12/24 21:35 4 mg ONCE ONE Administration Sumatriptan Succinate 6 mg 07/12/24 21:34 07/12/24 21:46 Sumatriptan Succinate 6 Mg/0.5 Ml Vial SUBCUT 07/12/24 21:35 6 mg ONCE ONE Administration Medical Decision Making Lab Data [facility] Lab Attestation statement: I reviewed the patient's lab results. 07/12/24 16:40 07/12/24 16:40 Labs: Lab Results 07/12/24 Range/Units 16:40 WBC 8.3 (4.8-10.8) X10*3/uL RBC 5.24 (4.60-5.80) X10*6/uL Hgb 14.5 (14.0-18.0) g/dl Hct 45.5 (42.0-52.0) % MCV 86.8 (80.0-98.0) fL MCH 27.7 (27.0-33.0) pg MCHC 31.9 (31.0-36.0) g/dl RDW 12.8 (11.0-16.0) % Plt Count 255 (160-400) X10*3/uL MPV 11.0 (9.4-12.4) fL Immature Gran % (Auto) 0.7 H (0.0-0.4) % Neut % (Auto) 73.3 H (45-73) % Lymph % (Auto) 15.2 L (20-40) % [place] % (Auto) 9.2 (2-11) % Eos % (Auto) 1.1 (0-4) % Baso % (Auto) 0.5 (0-2) % Lymph # (Auto) 1.3 (1.2-4.9) X10*3/uL [place] # (Auto) 0.8 (0.1-1.2) X10*3/uL Eos # (Auto) 0.1 (0.0-0.4) X10*3/uL Baso # (Auto) 0.0 (0.0-0.2) X10*3/uL Abs Immat Gran (auto) 0.06 H (0.00-0.03) X10*3/uL Absolute Neuts (auto) 6.1 (2.0-8.3) x10*3/uL Absolute Nucleated RBC 0.000 (0.0-0.012) X10*3/uL Nucleated RBC % (auto) 0.0 (0.0-0.2) /100WBC Sodium 138 (135-145) mmol/L Potassium 3.9 (3.3-5.1) mmol/L Chloride 108 (96-108) mmol/L Carbon Dioxide 22 (22-29) mmol/L Anion Gap 12 (12-20) BUN 11 (9-16) mg/dL Creatinine 0.90 (0.5-1.4) mg/dL Estim Creat Clear Calc 196.0 Estimated GFR > 60 Random Glucose 98 (60-115) mg/dL Calcium 9.3 (8.4-10.2) mg/dL Total Bilirubin 0.7 (0.0-1.0) mg/dL AST 22 (5-37) U/L ALT 32 (0-40) U/L Alkaline Phosphatase 72 (39-117) U/L Total Protein 8.2 H (6.5-8.0) g/dL Albumin 4.2 (3.5-5.0) g/dL Lipase 17 (8-78) U/L Influenza Type A (PCR) NEGATIVE (Negative) Influenza Type B (PCR) NEGATIVE (Negative) RSV RNA Qual (PCR) NEGATIVE (Negative) SARS-CoV-2 RNA (RT-PCR) NEGATIVE (Negative) S. pyogenes GrpA SARAH Negative (Negative) Discharge Plan Discharge Prescriptions: No Action acetaminophen [Tylenol Extra Strength] 500 mg tablet 500 mg PO Q6H PRN (Reason: pain or fever) Qty: 20 0RF amoxicillin-pot clavulanate [Augmentin] 875-125 mg tablet 1 tab PO Q12H 7 Days Qty: 14 0RF ibuprofen 600 mg tablet 600 mg PO Q8H PRN (Reason: fever or pain) Qty: 20 0RF metoprolol tartrate 25 mg tablet 25 mg PO BID Qty: 180 0RF aspirin [Adult Aspirin Regimen] 81 mg tablet,delayed release (DR/EC) 81 mg PO DAILY Qty: 90 0RF naproxen 500 mg tablet 500 mg PO BID PRN (Reason: pain) Qty: 30 0RF amoxicillin-pot clavulanate 875-125 mg tablet 1 tab PO BID Qty: 20 0RF Print Language: Italian
[2024-07-12 16:48] LABS: MANUAL DIFF FLAG NO
[2024-07-12 16:52] LABS: Basophils Percent Auto 0.5 % (0-2); Eosinophils Absolute Auto 0.1 X10*3/uL (0.0-0.4); Eosinophils Percent Auto 1.1 % (0-4); Hematocrit 45.5 % (42.0-52.0); Hemoglobin 14.5 g/dl (14.0-18.0); Imm Gran Abs Auto 0.06 X10*3/uL (0.00-0.03); Imm Gran Pct Auto 0.7 % (0.0-0.4); Lymphocytes Absolute Auto 1.3 X10*3/uL (1.2-4.9); Lymphocytes Percent Auto 15.2 % (20-40); Mean Corpuscular HGB Conc 31.9 g/dl (31.0-36.0); Mean Corpuscular Hemoglobin 27.7 pg (27.0-33.0); Mean Corpuscular Volume 86.8 fL (80.0-98.0); Monocytes Absolute Auto 0.8 X10*3/uL (0.1-1.2); Monocytes Percent Auto 9.2 % (2-11); Neutrophils Absolute Auto 6.1 x10*3/uL (2.0-8.3); Neutrophils Percent Auto 73.3 % (45-73); Platelet Count 255 X10*3/uL (160-400); Red Blood Count 5.24 X10*6/uL (4.60-5.80); Red Cell Distribution Width 12.8 % (11.0-16.0); White Blood Count 8.3 X10*3/uL (4.8-10.8)
[2024-07-12 17:03] LABS: Alanine Aminotransferase 32 U/L (0-40); Albumin Level 4.2 g/dL (3.5-5.0); Alkaline Phosphatase 72 U/L (39-117); Anion Gap 12 (12-20); Aspartate Amino Transferase 22 U/L (5-37); Bilirubin Total 0.7 mg/dL (0.0-1.0); Blood Urea Nitrogen 11 mg/dL (9-16); Calcium 9.3 mg/dL (8.4-10.2); Carbon Dioxide 22 mmol/L (22-29); Chloride 108 mmol/L (96-108); Estimated Glomerular Filt Rate > 60; Glucose Random 98 mg/dL (60-115); Lipase 17 U/L (8-78); Potassium 3.9 mmol/L (3.3-5.1); Sodium 138 mmol/L (135-145); Total Protein 8.2 g/dL (6.5-8.0)
[2024-07-12 17:13] LABS: IDNOW Serial# 55D5AD1C; Strep A Nucleic Acid Negative (Negative)
[2024-07-12 17:25] LABS: Influenza A PCR NEGATIVE (Negative); Influenza B PCR NEGATIVE (Negative); Resp Syncy Virus RNA Qual PCR NEGATIVE (Negative); SARS COV2 PCR INHOUSE NEGATIVE (Negative)
--- OUTSIDE RECORDS SUMMARY | 2024-07-12 20:19 | XMS_ITS | Referral Summary ---
Author Organization [facility] Address [address] [place] [address] Care Team Providers Care Director Inbound Sales Name Role Phone Ezekiel Cabrera Primary Care Provider [phone] Allergies No known active allergies Medications clonazePAM [...] Not on file Procedures * Due to [place] [employer] law, this organization might not be sharing negative HIV tests. Procedure Name Priority Date/Time Associated Diagnosis Comments BASIC METABOLIC PANEL STAT 07/18/2020 4:18 AM EDT from Last 3 Months or Most Recently Relevant to Health Maintenance Results * Due to [place] [employer] law, this organization might not be sharing negative HIV tests. * (ABNORMAL) Basic Metabolic Panel (07/18/2020 4:18 AM EDT) NA 139 135 - 145 mmol/L 07/18/2020 4:59 AM EDT [facility] K 4.5 3.5 - 5.3 mmol/L 07/18/2020 4:59 AM EDT [facility] Cl 109 97 - 110 mmol/L 07/18/2020 4:59 AM EDT [facility] CO2 21(L) 24 - 32 mmol/L 07/18/2020 4:59 AM EDT [facility] BUN 21 7 - 23 mg/dL 07/18/2020 4:59 AM EDT [facility] Creatinine 1.00 0.60 - 1.30 mg/dL 07/18/2020 4:59 AM EDT [facility] Glucose 120(H) 70 - 99 mg/dL 07/18/2020 4:59 AM EDT [facility] Calcium 9.7 8.7 - 10.7 mg/dL 07/18/2020 4:59 AM EDT [facility] Anion Gap 9 5 - 15 07/18/2020 4:59 AM EDT [facility] eGFR Non- >90 >=90 mL/min/BS A 07/18/2020 4:59 AM EDT [facility] eGFR >90 >=90 mL/min/BS A 07/18/2020 4:59 AM EDT [facility] Comment: Units = mL/min/1.73 [...] Olvera MD LAB BLOOD ORDERABLES Final Result [facility] [address] [place] [address], from Last 3 Months or Most Recently Relevant to Health Maintenance [facility] [place] [id number] Care Teams Director Inbound Sales Relationship Specialty Start Date End Date Ezekiel Cabrera [address] [place] [phone] PCP - General Internal Medicine 07/04/17
--- OUTSIDE RECORDS SUMMARY | 2024-07-12 20:19 | XMS_ITS | Clinical Summary ---
Author Organization [facility] Address [address] [place] [phone] Phone Care Team Providers Care Brim Greaser Operator Name Role Phone Devyn Miranda MD Primary [...] of Migraines, No family history of Sudden /NC under age 55, Family history of Diabetes [...] age to complete this topic Care Teams Brim Greaser Operator Relationship Specialty Start Date End Date Devyn Miranda MD PCP - General 10/08/16
--- OUTSIDE RECORDS SUMMARY | 2024-07-12 20:19 | XMS_ITS | Clinical Summary ---
Author Organization [facility] Address [address] [place] [address] Care Team Providers Care Labor Standards Director Name Role Phone Luzma Cabreraketandaryl Lakeshia Primary Care Provider [phone] Allergies No known active allergies Medications clonazePAM [...] Completed 11/19/2002, 02/26/2000 Procedures * Due to [place] [employer] law, this organization might not be sharing negative HIV tests. Procedure Name Priority Date/Time Associated Diagnosis Comments BASIC METABOLIC PANEL STAT 07/18/2020 4:18 AM EDT from Last 3 Months or Most Recently Relevant to Health Maintenance Results * Due to [place] [employer] law, this organization might not be sharing negative HIV tests. * (ABNORMAL) Basic Metabolic Panel (07/18/2020 4:18 AM EDT) NA 139 135 - 145 mmol/L 07/18/2020 4:59 AM EDT [facility] K 4.5 3.5 - 5.3 mmol/L 07/18/2020 4:59 AM EDT [facility] Cl 109 97 - 110 mmol/L 07/18/2020 4:59 AM EDT [facility] CO2 21(L) 24 - 32 mmol/L 07/18/2020 4:59 AM EDT [facility] BUN 21 7 - 23 mg/dL 07/18/2020 4:59 AM EDT [facility] Creatinine 1.00 0.60 - 1.30 mg/dL 07/18/2020 4:59 AM EDT [facility] Glucose 120(H) 70 - 99 mg/dL 07/18/2020 4:59 AM EDT [facility] Calcium 9.7 8.7 - 10.7 mg/dL 07/18/2020 4:59 AM EDT [facility] Anion Gap 9 5 - 15 07/18/2020 4:59 AM EDT [facility] eGFR Non- >90 >=90 mL/min/BS A 07/18/2020 4:59 AM EDT [facility] eGFR >90 >=90 mL/min/BS A 07/18/2020 4:59 AM EDT [facility] Comment: Units [...] Olvera MD LAB BLOOD ORDERABLES Final Result [facility] [address] [place] [address], from Last 3 Months or Most Recently Relevant to Health Maintenance Insurance [facility] Care Teams Labor Standards Director Relationship Specialty Start Date End Date Ezekiel Cabrera [address] [place] [phone] PCP - General Internal Medicine 07/04/17
--- OUTSIDE RECORDS SUMMARY | 2024-07-12 20:19 | XMS_ITS | Encounter Summary ---
Author Organization [facility] Address [address] [place] [phone] Phone Care Team Providers Care Business Integration Manager Name Role Phone Devyn Miranda MD Primary Care Provider Unavailabl e Encounter Details Date Type Department Care Team (Late st Contact Info) Description 10/14/2016 Conversion Encounter [facility] - [address] [phone] Social History Tobacco Use Types Packs/Day Years [...] on filedocumented in this encounter Care Teams Business Integration Manager Relationship Specialty Start Date End Date Devyn Miranda MD PCP - General 10/08/16 documented as of this encounter
[2024-07-12 20:21] VITALS: BP 145/98; PULSE 89; RESP 16; TEMP 36.6; O2SAT 97
[2024-07-12] MEDS: Ondansetron ODT 4 MG TAB.RAPDIS TRANSLINGU (21:46)
[2024-07-12] MEDS: SUMAtriptan succinate 6 MG/0.5 ML VIAL SUBCUT (21:46)
[2024-07-12 22:39] VITALS: BP 117/98; PULSE 85; RESP 20; TEMP 36; O2SAT 93
[2024-07-12] MEDS: Metoclopramide HCl 10 MG/2 ML VIAL IVPUSH (22:55)
[2024-07-12] MEDS: Ketorolac Tromethamine 30 MG/ML VIAL IVPUSH (22:55)
[2024-07-12] MEDS: diphenhydrAMINE HCL 50 MG/ML VIAL IVPUSH (22:55)
[2024-07-12] MEDS: 0.9 % Sodium Chloride 1,000 ML 999 ML IV (22:56)
--- NOTE | 2024-07-12 23:23 | ED.HA ---
HPI - Headache General Chief Complaint: Headache Stated Complaint: migraine x6 days Time Seen by Provider: 07/12/24 21:08 Source: patient Mode of arrival: ambulatory Limitations: no limitations History of Present Illness ED Provider: HPI Narrative: Patient was healthy complaining of nasal congestion cough with headache for last 6 days with light sensitivity had a low-grade fever yesterday no family history of migraine patient denied any history of any head injury or migraines in the past Related Data Previous Rx's ?Medication ?Instructions ?Recorded acetaminophen 500 mg tablet 500 mg PO Q6H PRN pain or fever 07/16/20 (Tylenol Extra Strength) #20 tabs amoxicillin 875 mg-potassium 1 tab PO Q12H 7 days #14 tabs 07/16/20 clavulanate 125 mg tablet (Augmentin) ibuprofen 600 mg tablet 600 mg PO Q8H PRN fever or pain 07/16/20 #20 tabs aspirin 81 mg tablet,delayed 81 mg PO DAILY #90 tabs 03/15/23 release (Adult Aspirin Regimen) metoprolol tartrate 25 mg tablet 25 mg PO BID #180 tabs 03/15/23 naproxen 500 mg tablet 500 mg PO BID PRN pain #30 tabs 02/10/24 amoxicillin 875 mg-potassium 1 tab PO BID #20 tabs 06/18/24 clavulanate 125 mg tablet oyxkwzmxcz-juymzxjtoztti-kndjynfg 1 tab PO Q6H PRN haeadace #20 tabs 07/13/24 50 mg-325 mg-40 mg tablet ondansetron 4 mg disintegrating 4 mg PO Q6-8H PRN nausea and 07/13/24 tablet vomiting #7 tabs Allergies Allergy/AdvReac Type Severity Reaction Status Date / Time No Known Allergies Allergy Verified 07/12/24 16:12 [No Known Allergies*] Review of Systems Review of Systems: Yes all other systems are reviewed and are negative PMFSH Past Medical History Medical History Seizure Social History Social History Alcohol intake: current Alcohol intake frequency: holidays/special occasions only Smoked in Last 30 Days: No Use of substances other than those prescribed or required for medical reasons: No Advance Directives: No Advance Directives Information Provided: No Physical Exam Vital Signs: Vital Signs: Last Vital Signs Temp 97.8 F 07/13/24 00:36 Pulse 90 07/13/24 00:36 Resp 20 07/13/24 00:36 BP 124/67 07/13/24 00:36 Pulse Ox 93 07/13/24 00:36 O2 Del Method Room Air 07/13/24 00:36 BMI result Body Mass Index 52.7 Appearance: Alert. Oriented X3. No acute distress. Eyes: PERRLA, No Nystagmus light sensitive ENT: Pharynx normal. Oral Mucosa moist negative no temporal artery tenderness CVS: Normal heart rate and rhythm. Pulses normal. Respiratory: No respiratory distress. Equal air entry bilateral, no wheezing/rales/rhonchi Abdomen: Soft and nontender. Bowel sounds are present, no mass palpable, no CVA tenderness Skin: Skin warm and dry. Normal skin color. Normal skin turgor. Extremities: No lower extremity edema. No calf tenderness Neuro: Oriented X 3. No motor deficit. No sensory deficit.No cerebellar signs , cranial nerves II-XII intact Medications Administered Discontinued Medications Generic Name Dose Route Start Last Admin Trade Name Freq PRN Reason Stop Dose Admin Diphenhydramine HCl 50 mg 07/12/24 22:35 07/12/24 22:55 Diphenhydramine Hcl 50 Mg/Ml Vial IVPUSH 07/12/24 22:36 50 mg ONCE ONE Administration Sodium Chloride 1,000 mls @ 999 mls/hr 07/12/24 22:35 07/12/24 22:56 Ns IV 07/12/24 23:35 999 mls/hr .Q1H1M ONE Administration Ketorolac Tromethamine 30 mg 07/12/24 22:35 07/12/24 22:55 Ketorolac Tromethamine 30 Mg/Ml Vial IVPUSH 07/12/24 22:36 30 mg ONCE ONE Administration Metoclopramide HCl 10 mg 07/12/24 22:35 07/12/24 22:55 Metoclopramide Hcl 10 Mg/2 Ml Vial IVPUSH 07/12/24 22:36 10 mg ONCE ONE Administration Ondansetron HCl 4 mg 07/12/24 21:34 07/12/24 21:46 Ondansetron Odt 4 Mg Tab.Rapdis TRANSLINGU 07/12/24 21:35 4 mg ONCE ONE Administration Sumatriptan Succinate 6 mg 07/12/24 21:34 07/12/24 21:46 Sumatriptan Succinate 6 Mg/0.5 Ml Vial SUBCUT 07/12/24 21:35 6 mg ONCE ONE Administration Medical Decision Making Medical Decision Making [facility] Narrative: Patient with headache likely migraine responded to cocktail will discharge patient home on Fioricet advised to follow with PCP Lab Data [facility] Lab Attestation statement: I reviewed the patient's lab results. 07/12/24 16:40 07/12/24 16:40 Labs: Lab Results 07/12/24 Range/Units 16:40 WBC 8.3 (4.8-10.8) X10*3/uL RBC 5.24 (4.60-5.80) X10*6/uL Hgb 14.5 (14.0-18.0) g/dl Hct 45.5 (42.0-52.0) % MCV 86.8 (80.0-98.0) fL MCH 27.7 (27.0-33.0) pg MCHC 31.9 (31.0-36.0) g/dl RDW 12.8 (11.0-16.0) % Plt Count 255 (160-400) X10*3/uL MPV 11.0 (9.4-12.4) fL Immature Gran % (Auto) 0.7 H (0.0-0.4) % Neut % (Auto) 73.3 H (45-73) % Lymph % (Auto) 15.2 L (20-40) % [place] % (Auto) 9.2 (2-11) % Eos % (Auto) 1.1 (0-4) % Baso % (Auto) 0.5 (0-2) % Lymph # (Auto) 1.3 (1.2-4.9) X10*3/uL [place] # (Auto) 0.8 (0.1-1.2) X10*3/uL Eos # (Auto) 0.1 (0.0-0.4) X10*3/uL Baso # (Auto) 0.0 (0.0-0.2) X10*3/uL Abs Immat Gran (auto) 0.06 H (0.00-0.03) X10*3/uL Absolute Neuts (auto) 6.1 (2.0-8.3) x10*3/uL Absolute Nucleated RBC 0.000 (0.0-0.012) X10*3/uL Nucleated RBC % (auto) 0.0 (0.0-0.2) /100WBC Sodium 138 (135-145) mmol/L Potassium 3.9 (3.3-5.1) mmol/L Chloride 108 (96-108) mmol/L Carbon Dioxide 22 (22-29) mmol/L Anion Gap 12 (12-20) BUN 11 (9-16) mg/dL Creatinine 0.90 (0.5-1.4) mg/dL Estim Creat Clear Calc 196.0 Estimated GFR > 60 Random Glucose 98 (60-115) mg/dL Calcium 9.3 (8.4-10.2) mg/dL Total Bilirubin 0.7 (0.0-1.0) mg/dL AST 22 (5-37) U/L ALT 32 (0-40) U/L Alkaline Phosphatase 72 (39-117) U/L Total Protein 8.2 H (6.5-8.0) g/dL Albumin 4.2 (3.5-5.0) g/dL Lipase 17 (8-78) U/L Influenza Type A (PCR) NEGATIVE (Negative) Influenza Type B (PCR) NEGATIVE (Negative) RSV RNA Qual (PCR) NEGATIVE (Negative) SARS-CoV-2 RNA (RT-PCR) NEGATIVE (Negative) S. pyogenes GrpA SARAH Negative (Negative) Discharge Plan Discharge Clinical Impression: Migraine Patient Disposition: Home, Self-Care Instructions: Migraine Headache (ED) Additional Instructions: Likely have migraine headache Take medication as prescribed for headaches follow up with your PCP if not better Prescriptions: New yoonrbuurr-ymslyofsfbhaw-sysh 50-325-40 mg tablet 1 tab PO Q6H PRN (Reason: haeadace) Qty: 20 0RF ondansetron 4 mg tablet,disintegrating 4 mg PO Q6-8H PRN (Reason: nausea and vomiting) Qty: 7 0RF No Action acetaminophen [Tylenol Extra Strength] 500 mg tablet 500 mg PO Q6H PRN (Reason: pain or fever) Qty: 20 0RF amoxicillin-pot clavulanate [Augmentin] 875-125 mg tablet 1 tab PO Q12H 7 Days Qty: 14 0RF ibuprofen 600 mg tablet 600 mg PO Q8H PRN (Reason: fever or pain) Qty: 20 0RF metoprolol tartrate 25 mg tablet 25 mg PO BID Qty: 180 0RF aspirin [Adult Aspirin Regimen] 81 mg tablet,delayed release (DR/EC) 81 mg PO DAILY Qty: 90 0RF naproxen 500 mg tablet 500 mg PO BID PRN (Reason: pain) Qty: 30 0RF amoxicillin-pot clavulanate 875-125 mg tablet 1 tab PO BID Qty: 20 0RF Stand Alone Forms: Work/School Release Interventions: ED Discharge Assessment Last Done: 07/13/24 00:36 Discharge Date/Time: 07/13/24 00:36 Print Language: Vietnamese
[2024-07-13 00:28] VITALS: BP 124/67; PULSE 90; RESP 20; TEMP 36.6; O2SAT 93
--- NOTE | 2024-07-13 00:35 | PC.NURSE ---
Iv removed, reviewed discharge instructions with pt, pt verbalized understanding, no sign of distress, pt had a steady gait upon discharge.
[2024-07-13 00:36] VITALS: BP 124/67; PULSE 90; RESP 20; TEMP 36.6; O2SAT 93
== END 2024-07-13 00:36 | disposition home or self-care (01) ==
PROVIDERS: Physician Assistant; Emergency Provider Internal Medicine
DX: G43.909 Migraine, unspecified, not intractable, without status migrainosus (principal); R05.9 Cough, unspecified; R50.9 Fever, unspecified; Z03.818 Encounter for observation for suspected exposure to other biological agents ruled out
CPT/HCPCS: 0241U; 80053; 83690; 85025; 87651; 96372; 96374; 96375; 99284; J1200; J1885; J2765; J3030

== ENCOUNTER 2025-01-11 22:42 | Emergency (ER) | payer SELFPAY ==
[2025-01-11 22:44] VITALS: BP 161/93; PULSE 114; RESP 20; TEMP 37.6; O2SAT 97; BMI 54.5
[2025-01-11 23:12] LABS: IDNOW Serial# 6674DD1D; Strep A Nucleic Acid Negative (Negative)
[2025-01-11 23:24] LABS: COVID-19 Test Negative (Negative); IDNOW Serial# 152EDE1D; IDNOW Serial# 16C4AD1C; Influenza B2 Negative (Negative)
--- NOTE | 2025-01-11 23:35 | ED.GENADULT ---
HPI - General Adult General Chief complaint: Upper Respiratory Symptoms Stated complaint: muscle pain, throat pain Time Seen by Provider: 01/11/25 23:27 Source: patient Mode of arrival: ambulatory Limitations: no limitations History of Present Illness ED Provider: Dr. Duong [facility] narrative: 24-year-old male history of strep throat and tonsillitis in the past requiring hospital admission at [facility] presented hospital today for evaluation of sore throat since Tuesday no sign of coughing. Patient's significant other stated that she noticed his tonsil has been large with some exudates. Patient is also complaining of chills. Difficulty swallowing water however able to swallow the water. Related Data Previous Rx's ?Medication ?Instructions ?Recorded acetaminophen 500 mg tablet 500 mg PO Q6H PRN pain or fever 07/16/20 (Tylenol Extra Strength) #20 tabs amoxicillin 875 mg-potassium 1 tab PO Q12H 7 days #14 tabs 07/16/20 clavulanate 125 mg tablet (Augmentin) ibuprofen 600 mg tablet 600 mg PO Q8H PRN fever or pain 07/16/20 #20 tabs aspirin 81 mg tablet,delayed 81 mg PO DAILY #90 tabs 03/15/23 release (Adult Aspirin Regimen) metoprolol tartrate 25 mg tablet 25 mg PO BID #180 tabs 03/15/23 naproxen 500 mg tablet 500 mg PO BID PRN pain #30 tabs 02/10/24 amoxicillin 875 mg-potassium 1 tab PO BID #20 tabs 06/18/24 clavulanate 125 mg tablet iwbfqscjiu-fuhhbpcqjyfeo-eigsymtn 1 tab PO Q6H PRN haeadace #20 tabs 07/13/24 50 mg-325 mg-40 mg tablet ondansetron 4 mg disintegrating 4 mg PO Q6-8H PRN nausea and 07/13/24 tablet vomiting #7 tabs amoxicillin 400 mg/5 mL oral 500 mg (6.25 mL) PO BID 10 days 01/12/25 suspension #125 mL Allergies Allergy/AdvReac Type Severity Reaction Status Date / Time No Known Allergies (No Known Allergy Verified 01/11/25 22:49 Allergies*) Review of Systems Review of Systems: Pertinent review of systems as mentioned in HPI. All other system otherwise negative. [facility] Past Medical History [facility] Narrative: Medical history as mentioned in [facility] Medical History Seizure Social History Social History Alcohol intake: current Alcohol intake frequency: holidays/special occasions only Smoked in Last 30 Days: No Use of substances other than those prescribed or required for medical reasons: No Advance Directives: No Advance Directives Information Provided: Yes Physical Exam ED Exam Exam: General: Does feel warm to touch Head: Normacephalic, atraumatic ENT: oral mucosa moist, bilateral enlarged tonsils, foul-smelling breath, exudate appreciated on exam Cardiovascular: Tachycardic rate, regular rhythm, no murmurs, rubbing, gallops Respiratory: CTAB, no wheeze, rales, rhonchi Gastrointestinal: Soft, non distended, non tender, non guarding Skin: Warm and dry Psychiatric: Appropriate mood and thoughts Vital Signs: Vital Signs - 24 hr 01/11/25 22:44 01/12/25 00:42 01/12/25 01:28 Temperature 99.7 F 99.5 F 98.3 F Pulse Rate 114 H 116 H 98 Respiratory Rate 20 25 H 20 Blood Pressure 161/93 H 166/107 H 145/88 H Pulse Oximetry 97 95 95 Oxygen Delivery Method Room Air Room Air 01/12/25 01:43 01/12/25 01:58 Temperature Pulse Rate 95 99 Respiratory Rate Blood Pressure 156/87 H 144/88 H Pulse Oximetry Oxygen Delivery Method BMI result Body Mass Index 54.5 Medications Administered Discontinued Medications Generic Name Dose Route Start Last Admin Trade Name Freq PRN Reason Stop Dose Admin Acetaminophen 975 mg 01/12/25 00:21 01/12/25 00:44 Acetaminophen 325 Mg Tablet PO 01/12/25 00:22 975 mg ONCE ONE Administration Sodium Chloride 1,000 mls @ 999 mls/hr 01/12/25 00:15 01/12/25 02:00 Ns IV 01/12/25 01:15 Infused .Q1H1M RIVAS Infusion Ceftriaxone Sodium 1 gm/ 50 mls @ 100 mls/hr 01/12/25 00:21 01/12/25 01:46 Sodium Chloride IV 01/12/25 00:50 Infused ONCE ONE Infusion Medical Decision Making Medical Decision Making MDM Narrative: This is a 24-year-old male presented hospital today for evaluation of sore throat. I am concerned about strep throat for the patient does time. There is some exudate on examination. However patient is tachycardic. He did feel warm to touch. We will screen patient for sepsis. IV fluid be initiated for the patient we will obtain a CBC chemistry as well. Lactic acid and blood culture will be obtained. A dose of Tylenol will be provided the patient for antipyretic. We will plan to give patient some IV ceftriaxone for her antibiotic coverage. Patient does not have any signs of leukocytosis, no sign of elevated lactic acid. I do not think patient has sepsis based on his lab work. This may be viral in nature and tachycardic secondary to his fever. Given signs of exudate with some redness in the back of the oropharynx. We will treat patient for strep infection. Patient has received a dose IV ceftriaxone here. We will discharge patient on amoxicillin to take at home. Encouraged the patient to follow up with the primary care doctor. Referral to be given to the patient does not have a primary care doctor. Return precautions provided. Patient will be discharged Differential Diagnosis Differential Diagnoses: The differential diagnosis associated with the presentation includes Sepsis, strep throat, tonsillitis, pharyngitis Lab Data MDM Lab Attestation statement: I reviewed the patient's lab results. 01/12/25 00:39 01/12/25 00:39 Labs: Lab Results 01/11/25 01/12/25 Range/Units 22:52 00:39 WBC 10.7 (4.8-10.8) X10*3/uL RBC 5.43 (4.60-5.80) X10*6/uL Hgb 14.9 (14.0-18.0) g/dl Hct 47.0 (42.0-52.0) % MCV 86.6 (80.0-98.0) fL MCH 27.4 (27.0-33.0) pg MCHC 31.7 (31.0-36.0) g/dl RDW 13.3 (11.0-16.0) % Plt Count 245 (160-400) X10*3/uL MPV 11.5 (9.4-12.4) fL Immature Gran % (Auto) 0.2 (0.0-0.4) % Neut % (Auto) 74.1 H (45-73) % Lymph % (Auto) 14.2 L (20-40) % [place] % (Auto) 10.6 (2-11) % Eos % (Auto) 0.6 (0-4) % Baso % (Auto) 0.3 (0-2) % Lymph # (Auto) 1.5 (1.2-4.9) X10*3/uL [place] # (Auto) 1.1 (0.1-1.2) X10*3/uL Eos # (Auto) 0.1 (0.0-0.4) X10*3/uL Baso # (Auto) 0.0 (0.0-0.2) X10*3/uL Abs Immat Gran (auto) 0.02 (0.00-0.03) X10*3/uL Absolute Neuts (auto) 7.9 (2.0-8.3) x10*3/uL Absolute Nucleated RBC 0.000 (0.0-0.012) X10*3/uL Nucleated RBC % (auto) 0.0 (0.0-0.2) /100WBC Sodium 138 (135-145) mmol/L Potassium 4.2 (3.3-5.1) mmol/L Chloride 106 (96-108) mmol/L Carbon Dioxide 22 (22-29) mmol/L Anion Gap 14 (12-20) BUN 11 (9-16) mg/dL Creatinine 1.06 (0.5-1.4) mg/dL Estim Creat Clear Calc 168.4 Estimated GFR > 60 Random Glucose 89 (60-115) mg/dL Lactic Acid 1.4 (0.5-2.0) mmol/L Calcium 9.7 (8.4-10.2) mg/dL Total Bilirubin 0.6 (0.0-1.0) mg/dL AST 32 (5-37) U/L ALT 46 H (0-40) U/L Alkaline Phosphatase 79 (39-117) U/L Total Protein 8.5 H (6.5-8.0) g/dL Albumin 4.6 (3.5-5.0) g/dL COVID-19 (CASPER) Negative (Negative) COVID-19 Clin Com See Note Influenza Type A (SARAH) Negative (Negative) Influenza Type B (SARAH) Negative (Negative) Influenza A & B Note See Note S. pyogenes GrpA SARAH Negative (Negative) Prescription Management I considered prescription management with: Antibiotic Discharge Plan Discharge Clinical Impression: Strep pharyngitis Patient Disposition: Home, Self-Care Instructions: Strep Throat (ED) Additional Instructions: Follow up with the primary care doctor to ensure you are improving. Take tylenol as needed for fever. You can take 1000mg every 8 hours. Prescriptions: New amoxicillin 400 mg/5 mL suspension for reconstitution 500 mg PO BID 10 Days Qty: 125 0RF No Action acetaminophen [Tylenol Extra Strength] 500 mg tablet 500 mg PO Q6H PRN (Reason: pain or fever) Qty: 20 0RF amoxicillin-pot clavulanate [Augmentin] 875-125 mg tablet 1 tab PO Q12H 7 Days Qty: 14 0RF ibuprofen 600 mg tablet 600 mg PO Q8H PRN (Reason: fever or pain) Qty: 20 0RF metoprolol tartrate 25 mg tablet 25 mg PO BID Qty: 180 0RF aspirin [Adult Aspirin Regimen] 81 mg tablet,delayed release (DR/EC) 81 mg PO DAILY Qty: 90 0RF naproxen 500 mg tablet 500 mg PO BID PRN (Reason: pain) Qty: 30 0RF aygosyjibw-amnpdyljifurb-oxlc 50-325-40 mg tablet 1 tab PO Q6H PRN (Reason: haeadace) Qty: 20 0RF ondansetron 4 mg tablet,disintegrating 4 mg PO Q6-8H PRN (Reason: nausea and vomiting) Qty: 7 0RF amoxicillin-pot clavulanate 875-125 mg tablet 1 tab PO BID Qty: 20 0RF Referrals: [facility] Primary [facility] [Provider Group, Internal Medicine] Print Language: Botswan[place]
[2025-01-12 00:42] VITALS: BP 166/107; PULSE 116; RESP 25; TEMP 37.5; O2SAT 95
[2025-01-12 00:50] LABS: MANUAL DIFF FLAG NO
[2025-01-12 00:51] LABS: Hematocrit 47.0 % (42.0-52.0); Hemoglobin 14.9 g/dl (14.0-18.0); Imm Gran Abs Auto 0.02 X10*3/uL (0.00-0.03); Imm Gran Pct Auto 0.2 % (0.0-0.4); Lymphocytes Absolute Auto 1.5 X10*3/uL (1.2-4.9); Mean Corpuscular HGB Conc 31.7 g/dl (31.0-36.0); Mean Corpuscular Hemoglobin 27.4 pg (27.0-33.0); Mean Corpuscular Volume 86.6 fL (80.0-98.0); NRBC Abs Auto 0.000 X10*3/uL (0.0-0.012); NRBC Pct Auto 0.0 /100WBC (0.0-0.2); Platelet Count 245 X10*3/uL (160-400); Red Blood Count 5.43 X10*6/uL (4.60-5.80); White Blood Count 10.7 X10*3/uL (4.8-10.8)
[2025-01-12 01:12] LABS: Alanine Aminotransferase 46 U/L (0-40); Albumin Level 4.6 g/dL (3.5-5.0); Alkaline Phosphatase 79 U/L (39-117); Anion Gap 14 (12-20); Aspartate Amino Transferase 32 U/L (5-37); Blood Urea Nitrogen 11 mg/dL (9-16); Calcium 9.7 mg/dL (8.4-10.2); Carbon Dioxide 22 mmol/L (22-29); Chloride 106 mmol/L (96-108); Creatinine Clr Calc Pharmacy 168.4; Estimated Glomerular Filt Rate > 60; Potassium 4.2 mmol/L (3.3-5.1); Sodium 138 mmol/L (135-145); Total Protein 8.5 g/dL (6.5-8.0)
[2025-01-12 01:28] VITALS: BP 145/88; PULSE 98; RESP 20; TEMP 36.8; O2SAT 95
[2025-01-12 01:43] VITALS: BP 156/87; PULSE 95
[2025-01-12 01:58] VITALS: BP 144/88; PULSE 99
[2025-01-12 02:17] VITALS: BP 144/88; PULSE 99; RESP 20; TEMP 36.8; O2SAT 95
== END 2025-01-12 02:46 | disposition home or self-care (01) ==
PROVIDERS: Emergency Medicine; Emergency Provider Student in an Organized Health Care Education/Training Program
DX: J02.0 Streptococcal pharyngitis (principal)
CPT/HCPCS: 36415; 80053; 83605; 85025; 87040; 87502; 87635; 87651; 96365; 99284; 99285; J0696